=== PATIENT | male | born 1980 | race Caucasian/White ===

== ENCOUNTER 2017-03-26 13:52 | Emergency (ER) | payer SELFPAY ==
[2017-03-26 16:06] LABS: #Lymphocytes 0.9 thou/uL (1.20-3.40); #Monocytes 0.3 thou/uL (0.11-0.59); #Neutrophils 6.1 thou/uL (1.40-6.50); %Eosinophils 0.1 % (0.0-10.0); %Lymphocytes 12.8 % (21.0-51.0); %Monocytes 3.8 % (0.0-10.0); Hematocrit 43.9 % (42.0-52.0); Mean Platelet Volume 7.6 fL (7.4-10.4); Red Blood Cell (RBC) Count 4.71 mill/uL (4.70-6.10); White Blood Cell (WBC) Count 7.4 thou/uL (4.8-10.8)
[2017-03-26] MEDS ORDERED: Benzonatate 100 MG CAP ONE (16:23)
[2017-03-26 16:29] LABS: ALT (SGPT) 23 U/L (8-55); AST (SGOT) 20 U/L (5-34); Alkaline Phosphatase 56 U/L (40-150); Anion Gap 14 mmol/L (10-20); BUN (Urea Nitrogen) 15 mg/dL (8.9-20.6); Bilirubin, Total 0.3 mg/dL (0.2-1.2); CK (CPK) 65 U/L (30-200); Calc. Creatinine Clearance 0 mL/min (70-130); Calcium 9.7 mg/dL (7.8-10.44); Carbon Dioxide 26 mmol/L (22-29); Chloride 102 mmol/L (98-107); Estimated GFR-MDRD 86; Globulin 3.6 g/dL (2.4-3.5); Protein, Total 7.8 g/dL (6.0-8.3)
--- NOTE | 2017-03-26 16:34 | RAD ---
TWO VIEWS CHEST 03/26/17 HISTORY: Cough. PA and lateral views of the chest is obtained. The lungs are well aerated. No evidence of active intr athoracic disease seen. No evidence of effusions, pneumonia or pneumothorax seen. IMPRESSION: Normal two views chest. POS: [facility]
== END 2017-03-26 17:46 | disposition home or self-care (01) ==
LOC: ERS 13:52
DX: J11.1 Influenza due to unidentified influenza virus with other respiratory manifestations (principal); F17.210 Nicotine dependence, cigarettes, uncomplicated
CPT/HCPCS: 71020; 80053; 82550; 85025

== ENCOUNTER 2017-04-27 14:52 | Inpatient (IN) | payer SELFPAY ==
[2017-04-27 15:27] LABS: #Basophils 0.1 thou/uL (0.0-0.2); #Eosinphils 0.2 thou/uL (0.0-0.7); #Lymphocytes 1.8 thou/uL (1.20-3.40); #Monocytes 0.7 thou/uL (0.11-0.59); #Neutrophils 7.1 thou/uL (1.40-6.50); %Basophils 0.5 % (0.0-1.0); %Eosinophils 1.6 % (0.0-10.0); %Lymphocytes 17.9 % (21.0-51.0); %Monocytes 7.2 % (0.0-10.0); %Neutrophils 72.7 % (42.0-75.0); Hemoglobin 15.5 g/dL (14.0-18.0); Mean Corpuscular HGB CONC 33.4 g/dL (32.0-36.0); Mean Corpuscular Hemoglobin 30.6 pg (27.0-31.0); Mean Corpuscular Volume 91.5 fl (80.0-94.0); Mean Platelet Volume 7.2 fL (7.4-10.4); Platelet Count 250 thou/uL (130-400); RBC Distribution Width 12.3 % (11.5-14.5); Red Blood Cell (RBC) Count 5.08 mill/uL (4.70-6.10); White Blood Cell (WBC) Count 9.8 thou/uL (4.8-10.8)
[2017-04-27 15:47] LABS: ALT (SGPT) 13 U/L (8-55); AST (SGOT) 18 U/L (5-34); Albumin 4.6 g/dL (3.5-5.0); Alkaline Phosphatase 56 U/L (40-150); Anion Gap 18 mmol/L (10-20); BUN (Urea Nitrogen) 9 mg/dL (8.9-20.6); Bilirubin, Total 0.7 mg/dL (0.2-1.2); Calc. Creatinine Clearance 0 mL/min (70-130); Calcium 10.2 mg/dL (7.8-10.44); Carbon Dioxide 23 mmol/L (22-29); Chloride 103 mmol/L (98-107); Estimated GFR-MDRD 79; Globulin 3.5 g/dL (2.4-3.5); Glucose 79 mg/dL (70-105); Potassium 3.7 mmol/L (3.5-5.1); Protein, Total 8.1 g/dL (6.0-8.3); Sodium 140 mmol/L (136-145)
[2017-04-27] MEDS ORDERED: Iopamidol 370 76% 50 ML VIAL FS ONE (17:34)
[2017-04-27] MEDS ORDERED: ISOVUE-370 76%-LOCM 1 ML ONE (17:34)
[2017-04-27] MEDS ORDERED: Ondansetron HCl/PF 4 MG/2 ML Vial ONE ×2 (18:13→20:43)
[2017-04-27] MEDS ORDERED: Morphine 4 MG/ML VIAL ONE (20:53)
--- NOTE | 2017-04-27 22:31 | CT ---
CT ABDOMEN AND PELVIS WITH ORAL AND IV CONTRAST 04/27/17 HISTORY: Nausea, vomiting, diarrhea and abdominal pain. FINDINGS: The lung bases are clear. No calcified gallstones are seen. The spleen, pancreas, adrenal gland and k idneys are normal. There is an heterogeneously enhancing 5.5 cm right liver lobe mass. No free air, free fluid or lymphadenopathy seen in the abdomen or pelvis. An abnormally dilated fluid filled appendix is not visualized. No pericolonic inflammatory changes are seen. There is scattered colonic diverticulosis. IMPRESSION: 1. Mild colonic diverticulosis. 2. Right liver lobe mass. This should be evaluated with a technetium 99m labeled RBC scan. If th e scan is positive for hemangioma, workup should be stopped. If not, an ultrasound should be performe d with subsequent biopsy if needed. Code T POS: [facility]
[2017-04-27] MEDS ORDERED: Fentanyl 100 MCG/2 ML VIAL ONE (22:48)
[2017-04-27 23:17] LABS: Bilirubin Small (Negative); Blood, Urine Negative (Negative); Clarity CLEAR (Clear); Glucose, Urine (Dipstick) Negative (Negative); Leukocyte Trace (Negative); Nitrite Negative (Negative); Protein, Urine (Dipstick) Negative (Neg-Trace); Specific Gravity, Urine 1.034 (1.002-1.036); Urobilinogen 0.2 mg/dL (0.2-1.0); pH, Urine 5.5 (5.0-9.0)
[2017-04-27 23:19] LABS: Bacteria/HPF None Seen HPF (None Seen); Hyaline Casts/LPF 0-3 HYALINE CAST LPF (0-3 Hyaline); RBC/HPF 0-3 HPF (0-3); Squamous Epithelial None Seen HPF (0-3); WBC/HPF 0-3 HPF (0-3)
[2017-04-28] MEDS ORDERED: Ondansetron ODT 4 MG TAB PO PRN (00:33)
[2017-04-28] MEDS ORDERED: Acetaminophen 325 MG TAB PO PRN (00:33)
[2017-04-28] MEDS ORDERED: Ondansetron HCl/PF 4 MG/2 ML Vial IVP PRN (00:33)
[2017-04-28] MEDS: Sodium Chloride 0.9% 1,000 ML IV SCH ×3 (01:08→17:57)
[2017-04-28] MEDS ORDERED: HYDROcodone/Acetaminophen 7.5/325 mg Tablet PO PRN (01:12)
[2017-04-28 01:51] LABS: Amphetamine Not Detected (NotDetected); Barbiturates Screen Not Detected (NotDetected); Benzodiazepine Screen Not Detected (NotDetected); Cocaine Metabolite Screen Not Detected (NotDetected); Medtox Control Line Valid? VALID (VALID); Medtox Reader # READER 4; Methadone Not Detected (NotDetected); Methamphetamine Not Detected (NotDetected); Opiate Screen Detected (NotDetected); Oxycodone Screen Not Detected (NotDetected); Phencyclidine (PCP) Not Detected (NotDetected); THC/Cannabinoid Screen Detected (NotDetected); Tricyclic Screen Not Detected (NotDetected)
[2017-04-28] MEDS: Morphine 4 MG/ML VIAL SLOW IVP PRN ×5 (02:01→19:25)
[2017-04-28 02:07] VITALS: BMI 24.0
[2017-04-28] MEDS: Nicotine 14 MG PATCH TD SCH (05:16)
[2017-04-28 07:22] LABS: #Eosinphils 0.3 thou/uL (0.0-0.7); #Lymphocytes 1.6 thou/uL (1.20-3.40); #Monocytes 0.8 thou/uL (0.11-0.59); #Neutrophils 6.8 thou/uL (1.40-6.50); %Basophils 0.5 % (0.0-1.0); %Eosinophils 2.9 % (0.0-10.0); %Monocytes 7.9 % (0.0-10.0); %Neutrophils 71.7 % (42.0-75.0); Hemoglobin 13.4 g/dL (14.0-18.0); Mean Corpuscular HGB CONC 32.8 g/dL (32.0-36.0); Mean Corpuscular Hemoglobin 30.2 pg (27.0-31.0); Mean Platelet Volume 7.2 fL (7.4-10.4); Platelet Count 202 thou/uL (130-400); RBC Distribution Width 12.2 % (11.5-14.5); Red Blood Cell (RBC) Count 4.45 mill/uL (4.70-6.10); White Blood Cell (WBC) Count 9.5 thou/uL (4.8-10.8)
[2017-04-28] MEDS ORDERED: FLU VACC QS2017-18 36 mo. & older 0.5 ML SYRINGE IM ONE (09:00)
[2017-04-28] MEDS: AMOXicillin 250 MG CAP PO SCH ×2 (09:00→21:53)
[2017-04-28] MEDS: Pantoprazole 40 MG VIAL IVP SCH (09:01)
--- NOTE | 2017-04-28 09:19 | HP-2 ---
CODE STATUS: FULL. PRIMARY CARE PHYSICIAN: Lesley pichardo. ATTENDING: Dr. Michelle Veronica RESIDENT: Dr. Tati Alonzo HISTORIAN: Patient. CHIEF COMPLAINT: Nausea, vomiting, diarrhea. HISTORY OF PRESENT ILLNESS: The patient is a 36-year-old male with past medical history of Crohn's d isease who presented for a 2-day history of nausea, vomiting, diarrhea, and abdominal pain. He repor ts 7-8 episodes of diarrhea in the past 24 hours, does report fever at home as well as decreased appe tite and weight loss. In regards to his Crohn's disease the last flare was in October. The patient rep orts this episode, especially the diarrhea, feels different and regular Crohn's flares. His Crohn's treatment consists of no medication at this time, but was on Remicade in the past. It stopped workin g 2 years ago, has not been on it since that time. He was approved for Humira, but never took the me dication because he did not have follow up with a doctor due to his uninsured status and was anxious about side effects. He has been to the ED the last 3 months and was given steroids. He has tapered himself off and has been off of them for 1 month. The patient also reports chronic anal fistula that has not worsened and is actually improved from baseline. The patient also reports possible blood in stool. In the ER he got Zofran, fentanyl, morphine, and 2 liters of normal saline. PAST MEDICAL HISTORY: Crohn's. PAST SURGICAL HISTORY: Tonsillectomy and abscess I&D. ALLERGIES: No known drug allergies. MEDICATIONS: None. FAMILY HISTORY: Dad with lung cancer. SOCIAL HISTORY: The patient smokes 1-5 cigarettes per day, drinks socially and uses marijuana, last used this morning. REVIEW OF SYSTEMS: Twelve point review of systems performed including general, eyes, ENT, respirator y, CV, GI, , skin, MS, neuro and psych and positive findings discussed above in HPI. All other sys tems negative. PHYSICAL EXAMINATION: VITAL SIGNS: Blood pressure 136/81, pulse 80, respiratory rate 16, T-max 99, pulse ox 96% on room ai r, current weight 70.31 kilograms. GENERAL: The patient is alert and oriented x4, in no acute distress. Does have facial flushing. EYES: PERRLA, EOMI. ENT: Left tympanic membrane bulging with tereza pus in the ear drum indicating acute otitis media. N tanvi mucosa within normal limits. Oropharynx within normal limits. NECK: Supple, without lymphadenopathy. CARDIOVASCULAR: Regular rate and rhythm, no murmurs. RESPIRATORY: Normal effort, no retractions. SKIN: Warm and dry. ABDOMEN: Soft with tenderness in the left lower quadrant. Bowel sounds normal. EXTREMITIES: No clubbing, cyanosis or edema. MUSCULOSKELETAL: Structure within normal limits, tone within normal limits. NEUROLOGIC: No focal deficits. GCS 15. PSYCHIATRIC: Appropriate. LABORATORY DATA: CBC; hemoglobin 15.5, hematocrit 46.5, platelets 250. Chemistries: Sodium 140, potassium 3.6, chloride 103, bicarbonate 23, BUN 9, creatinine 1.05, glucos e 79, calcium 10.2, total protein 8.1, albumin 4.6, AST 18, ALT 13, alkaline phosphatase 56, total bi lirubin 0.7. CRP 1.7. IMAGING: CT abdomen and pelvis shows mild diverticulosis with a right 5 cm lower lobe liver mass joselito picious for possible hemangioma. ASSESSMENT AND PLAN: 1. Crohn's flare versus viral gastroenteritis. Dr. Verdugo consulted in the ED recommended stool stud ies, IV fluids and pain control. No steroids at this time per GI recommendations. 2. Liver mass. Possible hemangioma. Appreciate GI recommendations. 3. Left acute otitis media. We will treat with amoxicillin, possibly need myringotomy. The patient states ear pain since summer of 2016 and has not had any treatment. DISPOSITION AND LENGTH OF HOSPITAL STAY: 1-2 days. Symptomatic medications will be provided. History and physical exam well as management discussed with Dr. Michelle Veronica.
[2017-04-28] MEDS: Promethazine 25 MG TAB PO PRN ×2 (10:12→19:29)
--- NOTE | 2017-04-28 10:55 | PDOC.FM ---
- Subjective Subjective: Patient found in bed with by bedside. He states he is having abdominal discomfort. He said in past phenegran has helped with this. He specifically denies blood in his stool, though has some with wiping, endorse nausea, emesis. He does admit to marijuana use and feeling relief from nausea with showers. - Objective MAR Reviewed: Yes Vital Signs & Weight: Vital Signs (12 hours) Temp Pulse Resp BP Pulse Ox 04/28/17 07:55 97.2 F L 81 20 129/67 96 04/28/17 03:53 98.0 F 75 16 116/64 93 L 04/28/17 00:45 98.2 F 76 20 127/64 97 Weight Weight 74.049 kg I&O: 04/27/17 04/28/17 04/29/17 06:59 06:59 06:59 Intake Total 590.0 2 Balance 590.0 2 Result Diagrams: 04/28/17 07:13 04/27/17 15:18 <Shiraz Noble - Last Filed: 04/28/17 14:21> - Objective Vital Signs & Weight: Vital Signs (12 hours) Temp Pulse Resp BP Pulse Ox 04/28/17 11:40 97.6 F 70 20 123/69 100 04/28/17 07:55 97.2 F L 81 20 129/67 96 04/28/17 07:45 97.2 F L 81 20 Weight Admit Weight 73.936 kg Weight 73.936 kg I&O: 04/27/17 04/28/17 04/29/17 06:59 06:59 06:59 Intake Total 590.0 62 Balance 590.0 62 Result Diagrams: 04/28/17 07:13 04/27/17 15:18 <Gutierrez Sena - Last Filed: 04/28/17 16:51> Phys Exam - Physical Examination Constitutional: NAD HEENT: moist MMs Neck: no nodes Respiratory: no wheezing, no rhonchi Cardiovascular: RRR, no significant murmur, no rub Gastrointestinal: soft, no distention Mild diffuse tenderness throughout abdomen Musculoskeletal: no edema Neurological: non-focal Lymphatic: no nodes Psychiatric: normal affect Skin: no rash <Shiraz Noble - Last Filed: 04/28/17 14:21> Dx/Plan (1) Crohn disease Code(s): K50.90 - CROHN'S DISEASE, UNSPECIFIED, WITHOUT COMPLICATIONS Status: Acute Plan: Patient with known crohn disease. However he is not on his medication currently due to insurance issues. GI has been consulted. They do not think this is a flare at this time and recommend against steroid. (2) Liver mass Code(s): R16.0 - HEPATOMEGALY, NOT ELSEWHERE CLASSIFIED Status: Acute Plan: Possible hemangioma found on ct, mass was 5 cm. Patient states that this is known issue and it was called a hemangioma in past. We will request records from [facility] where he got a scan in 2016 before going forward with tagged RBC scan. (3) Otitis media Code(s): H66.90 - OTITIS MEDIA, UNSPECIFIED, UNSPECIFIED EAR Status: Acute Plan: Will treat with amoxicillin. Appear that it has rupture. (4) Gastroenteritis Code(s): K52.9 - NONINFECTIVE GASTROENTERITIS AND COLITIS, UNSPECIFIED Status : Acute Plan: GI felt this more likely represent a gastroenteritis. Supportive care while culture returns. (5) Substance abuse Code(s): F19.10 - OTHER PSYCHOACTIVE SUBSTANCE ABUSE, UNCOMPLICATED Status: Acute Plan: UDS was positive for cannabis. Symptoms may be from cannabis hyperemesis. <Shiraz Noble - Last Filed: 04/28/17 14:21> Attending Addendum - Attending Addendum I personally evaluated the patient and discussed the management with Dr. Noble. I agree with and repeated the History, Examination, Assessment and Plan documented above with any addition or exceptions noted below. Doing ok this morning, c/o abdominal pain that has improved with opiates. He has had very fragmented care since moving back to [place] from [place], and says he has been to ED's in [facility] and [facility]. Relatively benign exam except some purulence and obscured TM in the left ear, without mastoid bogginess or tenderness. Rectal deferred but no obvious fistula per Dr. Noble. Await stool workup. Records requested from [facility] where he says they investigated the liver mass and told him it was a hemangioma. Will hold on steroids. Has not had bloody BM's. Await GI eval. <Gutierrez Sena - Last Filed: 04/28/17 16:51>
--- NOTE | 2017-04-28 19:27 | CT ---
CT ABDOMEN WITH AND WITHOUT IV CONTRAST 04/28/17 HISTORY: Abdominal pain, nausea and vomiting. Liver mass. FINDINGS: Comparison is made with exam of previous day. The lung bases are clear. The spleen, pancreas, adrenal glands and kidneys are normal. There is vicar ious excretion of contrast in the gallbladder, new since yesterday's exam. The 5.5 cm mass in the right lobe of the liver demonstrates peripheral nodular enhancement with incom plete centripetal filling. The previous day's exam demonstrates a larger area of filling compared to the current study. No free air or free fluid or lymphadenopathy seen in the abdomen. The small bowel loops are not abnor lazaro dilated. No acute osseous abnormalities are seen. IMPRESSION: Liver mass is consistent with hemangioma. POS: [facility]
--- NOTE | 2017-04-28 22:36 | CON ---
DATE OF CONSULTATION: 04/28/2017 REASON FOR CONSULTATION: Probable Crohn's flare. CONSULTING PHYSICIAN: Randa Solomon MD HISTORY OF PRESENT ILLNESS: The patient is a 36-year-old gentleman with a past medical history of Crohn's disease, who is presenting with complaints of nausea , vomiting, diarrhea, and abdominal pain. He states that he was in his usual state of health until a few weeks ago when he started to have increased intermittent bouts of abdominal pain. However, over the last 2 days, he had a sudden increase in nausea, vomiting with nonbloody emesis, abdominal pain, and diarrhea. His abdominal pain, he described it as located on his left side in the suprapubic region, constant, 8/10 in severity. No clear exacerbating factors, but better with having a bowel movement. He also endorsed significant increased rectal pain associated with the increased diarrhea. The diarrhea was also nonbloody in nature, but he does also have a history of a chronic anal fistula related to his Crohn's disease that underwent Seton placement in 2004. With the worsening of the above symptoms, it prompted him to seek medical attention with the patient admitted to [facility] for further evaluation. Upon review with the patient, he said he was initially diagnosed with Crohn's disease in 2002 when he underwent a colonoscopy with biopsies showing the presence of the disease. His presenting symptoms were suprapubic abdominal pain , diarrhea, as well as mild nausea and vomiting. At that particular time, he was ultimately placed on Remicade and 6-MP with resolution of his symptoms. However, after approximately one year of treatment with 6-MP, he discontinued the medication and was continued with Remicade as monotherapy. In 2004, he had recurrence of the rectal fistula, at which point he underwent Seton placement. He was also placed on Asacol in addition to the Remicade at that time. Over the next decade, he was intermittently on Remicade, but with good response with administration and maintain a modium of remission. However, over the last year he has been having diminishing returns with Remicade administration, with his prior GI physician recommending transfer to Humira given loss of efficacy. He has thus far only received one dose of Humira (not loading dose). He also endorses a history of severe mouth ulcers and worsening of his rectal pain as well as mucoid discharge from the anal fistula when his Crohn's disease is uncontrolled. REVIEW OF SYSTEMS: A 12-category review of systems was obtained with all responses negative except for the pertinent positives as listed in the HPI. PAST MEDICAL HISTORY: Crohn's disease diagnosed in 2002. PAST SURGICAL HISTORY: Tonsillectomy and abscess I and D, no prior surgeries related to Crohn's complications. FAMILY HISTORY: Lung cancer (father). SOCIAL HISTORY: Smokes approximately 1-5 cigarettes per day as well as intermittent use of marijuana. Drinks approximately 2 drinks per month. MEDICATIONS: None. ALLERGIES: No known drug allergies. PHYSICAL EXAMINATION: VITAL SIGNS: Temperature 97.6, pulse 70, blood pressure 123/69, respiratory rate 20, satting 100% on room air. GENERAL: Patient is lying in bed comfortably, in no acute distress. Alert and oriented x4. HEENT: No discernible oropharyngeal ulcerations. NECK: Supple. No JVD noted. CARDIOVASCULAR: Regular rate and rhythm with no discernible murmurs, gallops, or rubs. RESPIRATORY: Clear to auscultation bilaterally with no discernible wheezes or rales. ABDOMEN: Normoactive bowel sounds, soft, nondistended. Tenderness to palpation in the midepigastric, right upper quadrant, and right lower quadrant. EXTREMITIES: No cyanosis, clubbing, or edema. LABORATORY DATA: CBC with a white blood cell count of 9.5, hemoglobin 13.4, hematocrit 40.9, platelets 202. Chemistry with a sodium of 140, potassium 3.7, chloride 103, carbon dioxide 23, BUN 9, creatinine 1.09, glucose 79, AST 18, ALT 13, alkaline phosphatase 56, total bilirubin 0.7. IMAGING STUDIES: CT and pelvis obtained on 04/27/2017, showing no free air, free fluid, or lymphadenopathy within the pelvis or abdomen. No pericolonic inflammatory changes are seen. There is scattered diverticulosis; however, there was also noted a heterogeneous lesion enhancing 5.5 cm right liver lobe mass. ASSESSMENT AND PLAN: The patient is a 36-year-old male with past medical history of Crohn's disease presenting with a probable Crohn's flare. Probable Crohn's flare The patient is presenting with a 1-2 week history of worsening abdominal pain and diarrhea that has progressively gotten worse over the last 2 days to include increased nausea and vomiting. He does have a history of Crohn's disease that was diagnosed in 2002 with presenting symptoms very similar to his current symptoms on this admission. Currently, having 6-7 small volume liquid bowel movements per day that are nonbloody. He had been taking prednisone until approximately one month ago with good response to the medication; however , he completed the treatment duration with return of symptoms on this admission. At this point, given the presence of prior diagnosis of Crohn's disease and the presence of an anorectal fistula, it could be considered complicated disease and the patient will need to be on escalated therapy in the future to include anti-TNF and immunomodulator therapy. Stool studies have been negative thus far with only the stool culture pending, so will place the patient on 40 mg prednisone daily for probable Crohn's flare and we will follow up on the stool cultures as its report is released. Recommendations: 1. Follow up on stool culture for any infectious etiology as a possible cause of Crohn's flare. 2. We will place the patient on prednisone 40 mg daily for Crohn's flare. 3. Follow up in the GI clinic within 2 weeks of discharge for continuation of therapy and plans to place on the immunomodulator and/or TNF therapy. Liver mass The patient is presenting with a probable Crohn's flare with the incidental finding of a 5.5 cm liver mass within the right lobe of the liver. At this point in time, given the current study with a CT abdomen and pelvis, it is indeterminate, but more likely to be a hemangioma. However, further characterization of this liver mass is needed with a multiphasic CT or MRI needed to do so. Either study could potentially help differentiate between hemangioma versus possible liver malignancy. Recommendations: 1. Would obtain a CT three-phase for a further characterization of this liver lobe mass. 2. If determined to be a hemangioma, no further workup is necessary. We will continue to follow. Please call with any questions. MTDD
[2017-04-29] MEDS: MORPHINE 10 MG/ML SYRINGE SLOW IVP PRN ×3 (02:37→16:18)
[2017-04-29] MEDS: Sodium Chloride 0.9% 1,000 ML IV SCH ×4 (03:34→21:29)
[2017-04-29] MEDS: Nicotine 14 MG PATCH TD SCH (05:57)
--- NOTE | 2017-04-29 09:35 | PDOC.FM ---
- Subjective Subjective: Patient feels overall ok today, but is still having nausea and too numerous to count bowel movement. He denies having fever, chills, sob, chest pain. Has generalized abd discomfort. - Objective MAR Reviewed: Yes Vital Signs & Weight: Vital Signs (12 hours) Temp Pulse Resp BP BP Pulse Ox 04/29/17 07:49 98.8 F 133 H 20 128/70 99 04/29/17 03:40 98.0 F 70 16 126/63 95 04/28/17 23:22 98.0 F 80 16 113/56 L 95 Weight Admit Weight 73.936 kg Weight 73.936 kg I&O: 04/28/17 04/29/17 04/30/17 06:59 06:59 06:59 Intake Total 590.0 1812.7 Balance 590.0 1812.7 Result Diagrams: 04/28/17 07:13 04/27/17 15:18 <Shiraz Noble - Last Filed: 04/29/17 11:11> - Objective Vital Signs & Weight: Vital Signs (12 hours) Temp Pulse Resp BP BP BP Pulse Ox 04/29/17 08:22 98.8 F 133 H 20 128/70 99 04/29/17 07:49 98.8 F 133 H 20 128/70 99 04/29/17 03:40 98.0 F 70 16 126/63 95 Weight Admit Weight 73.936 kg Weight 73.936 kg I&O: 04/28/17 04/29/17 04/30/17 06:59 06:59 06:59 Intake Total 590.0 1812.7 Balance 590.0 1812.7 Result Diagrams: 04/28/17 07:13 04/27/17 15:18 <Gutierrez Sena - Last Filed: 04/29/17 11:37> Phys Exam - Physical Examination Constitutional: NAD HEENT: moist MMs Neck: no nodes, supple Respiratory: no wheezing, no rales, no rhonchi, clear to auscultation bilateral Cardiovascular: RRR, no significant murmur, no rub Gastrointestinal: soft, non-tender, no distention, positive bowel sounds Musculoskeletal: no edema Neurological: non-focal, moves all 4 limbs Lymphatic: no nodes Psychiatric: normal affect Deviation from normal: Rash between gluteal cleft. Pain with touch. Refused rectal exam <Shiraz Noble - Last Filed: 04/29/17 11:11> Dx/Plan (1) Crohn disease Code(s): K50.90 - CROHN'S DISEASE, UNSPECIFIED, WITHOUT COMPLICATIONS Status: Acute Plan: Patient with known crohn disease. However he is not on his medication currently due to insurance issues. GI has been consulted. They recommend starting on prednisone 40. Will monitor for resolution (2) Liver mass Code(s): R16.0 - HEPATOMEGALY, NOT ELSEWHERE CLASSIFIED Status: Acute Plan: Possible hemangioma found on ct, mass was 5 cm. Patient states that this is known issue and it was called a hemangioma in past. CT was done yesterday that suggested hemangioma. Will follow with GI recs (3) Otitis media Code(s): H66.90 - OTITIS MEDIA, UNSPECIFIED, UNSPECIFIED EAR Status: Acute Plan: Will treat with amoxicillin. Appear that it has rupture. Redosed patient's amoxicillin today. (4) Gastroenteritis Code(s): K52.9 - NONINFECTIVE GASTROENTERITIS AND COLITIS, UNSPECIFIED Status : Acute Plan: GI fell this is likely crohn flare, treating with prednisone. Culture is negative so far for campy, c diff, shigella, and parasite. (5) Substance abuse Code(s): F19.10 - OTHER PSYCHOACTIVE SUBSTANCE ABUSE, UNCOMPLICATED Status: Acute Plan: UDS was positive for cannabis. Symptoms may be from cannabis hyperemesis. 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 <AideShiraz Dl - Last Filed: 04/29/17 11:11> Attending Addendum - Attending Addendum I personally evaluated the patient and discussed the management with Dr. Noble. I agree with and repeated the History, Examination, Assessment and Plan documented above with any addition or exceptions noted below. Stable pain this morning. No cp/sob/n/v. He was tachycardic earlier. Will bolus and observe. Low suspicion for PE. Adjusted amoxicillin. <Gutierrez Sena - Last Filed: 04/29/17 11:37>
[2017-04-29] MEDS ORDERED: Sodium Chloride 0.9% 1,000 ML IV SCH (10:00)
[2017-04-29] MEDS: predniSONE 20 MG TAB PO SCH (10:47)
[2017-04-29] MEDS: AMOXicillin 250 MG CAP PO SCH ×3 (10:47→20:31)
[2017-04-29] MEDS: Pantoprazole 40 MG VIAL IVP SCH (10:47)
--- NOTE | 2017-04-29 17:25 | PRG ---
DATE OF SERVICE: 04/29/2017 REASON FOR CONSULTATION: Probable Crohn's flare. SUBJECTIVE: The patient is somewhat improved this afternoon with decrease in his nausea and vomiting since admission; however, he continues to have small volume diarrhea with approximately 4-5 watery bowel movements a day and associated tenesmus. He also continues to have minimal abdominal pain, but also improved from previous. Currently, he denies any fevers, chills, shortness of breath, odynophagia, dysphagia, hematochezia, or melena. OBJECTIVE: VITAL SIGNS: Temperature 98.9, pulse 115, blood pressure 134/78, respiratory rate 16, and satting 100% on room air. GENERAL: The patient is lying comfortably in bed in no acute distress. He is alert and oriented x4. CARDIOVASCULAR: Regular rate and rhythm with tachycardic rate, but no discernible murmurs, gallops, or rubs. RESPIRATORY: Clear to auscultation bilaterally with no discernible wheezes or rales. ABDOMEN: Normoactive bowel sounds, soft, and nondistended. Tenderness to palpation in the midepigastric and right upper quadrant. EXTREMITIES: No cyanosis, clubbing, or edema. LABORATORY DATA: No current studies available for review today. IMAGING STUDIES: No current GI studies available for review. ASSESSMENT AND PLAN: The patient is a 36-year-old male with past medical history of Crohn's disease, presenting with probable Crohn's flare. Crohn's flare. The patient initially presented with a 1-2 week history of worsening abdominal pain and diarrhea that had progressively gotten worse over the 2 days prior to admission and associated with increased nausea and vomiting. On admission, he was having approximately 6-7 small volume liquid bowel movements per day that were nonbloody in consistency. He had been taking prednisone for his Crohn's disease until approximately one month ago and was doing well on this regimen; however, he completed the treatment duration with return of symptoms within the last few weeks. At this point, given negative infectious workup and presenting symptoms very similar to his prior presenting symptoms with Crohn's flare is the current clinical constellation of symptoms are most consistent with a Crohn's flare. Given the presence of recurrent or chronic anorectal fistula this could be considered complicated disease. The patient will need to be placed on either anti-TNF and/or immunomodulator therapy in the future. Currently tolerating prednisone 40 mg daily with no adverse events and good response to oral corticosteroids in the past. RECOMMENDATIONS: 1. We would continue the patient on prednisone 40 mg daily until seen for followup in GI clinic as an outpatient. 2. We would recommend followup in the GI clinic in 2 weeks of discharge for continuation of therapy and plans to ultimately place the patient back on Humira with medication assistance. Liver Mass Patient presenting with abnormal imaging on admission with a 5cm enhancing lesion on CT. However, further evaluation with CT 3 phase showed enhancement characteristics more consistent with a hemangioma. Given the benign nature of these lesions, no further intervention is necessary. We will sign off. Please call with any questions. CAROLED
[2017-04-29] MEDS: Morphine 4 MG/ML Carpuject SLOW IVP PRN (20:02)
[2017-04-29] MEDS: Promethazine 25 MG TAB PO PRN (20:03)
[2017-04-30] MEDS: Morphine 4 MG/ML Carpuject SLOW IVP PRN ×3 (00:38→09:10)
[2017-04-30] MEDS: Nicotine 14 MG PATCH TD SCH (05:39)
[2017-04-30] MEDS: Sodium Chloride 0.9% 1,000 ML IV SCH (05:53)
[2017-04-30] MEDS: AMOXicillin 250 MG CAP PO SCH ×3 (09:10→20:11)
[2017-04-30] MEDS: predniSONE 20 MG TAB PO SCH (09:12)
--- NOTE | 2017-04-30 09:15 | PDOC.FM ---
- Subjective Subjective: Patient did not have acute event overnight. He state he still has loose stool and is sore from going to the restroom. - Objective MAR Reviewed: Yes Vital Signs & Weight: Vital Signs (12 hours) Temp Pulse Resp BP Pulse Ox 04/30/17 07:45 98.2 F 87 14 121/73 100 Weight Admit Weight 73.936 kg Weight 73.936 kg I&O: 04/29/17 04/30/17 05/01/17 06:59 06:59 06:59 Intake Total 1812.7 7391.0 Balance 1812.7 7391.0 Result Diagrams: 04/28/17 07:13 04/27/17 15:18 <Shiraz Noble - Last Filed: 04/30/17 09:13> - Objective Vital Signs & Weight: Vital Signs (12 hours) Temp Pulse Resp BP Pulse Ox 04/30/17 11:35 98.6 F 78 14 107/58 L 98 04/30/17 07:45 98.2 F 87 14 121/73 100 Weight Admit Weight 73.936 kg Weight 73.936 kg I&O: 04/29/17 04/30/17 05/01/17 06:59 06:59 06:59 Intake Total 1812.7 7391.0 Balance 1812.7 7391.0 Result Diagrams: 04/28/17 07:13 04/30/17 09:23 <Gutierrez Sena - Last Filed: 04/30/17 12:06> Phys Exam - Physical Examination Constitutional: NAD HEENT: moist MMs Neck: no nodes, supple Respiratory: no wheezing, no rales, no rhonchi, clear to auscultation bilateral Cardiovascular: RRR, no rub Gastrointestinal: soft, no distention, positive bowel sounds Musculoskeletal: no edema Neurological: moves all 4 limbs Lymphatic: no nodes Psychiatric: normal affect Skin: no rash <Shiraz Noble - Last Filed: 04/30/17 09:13> Dx/Plan (1) Crohn disease Code(s): K50.90 - CROHN'S DISEASE, UNSPECIFIED, WITHOUT COMPLICATIONS Status: Acute Plan: Patient with known crohn disease. However he is not on his medication currently due to insurance issues. GI has been consulted. He is now on dose 2 of prednisone 40. Will monitor for resolution. He say that usually it takes 4-5 days (2) Liver mass Code(s): R16.0 - HEPATOMEGALY, NOT ELSEWHERE CLASSIFIED Status: Acute Plan: CT found likely hemangioma. GI agrees and has signed off. (3) Otitis media Code(s): H66.90 - OTITIS MEDIA, UNSPECIFIED, UNSPECIFIED EAR Status: Acute Plan: Will treat with amoxicillin. Appear that it has rupture. Day 3 of abx (4) Gastroenteritis Code(s): K52.9 - NONINFECTIVE GASTROENTERITIS AND COLITIS, UNSPECIFIED Status : Acute Plan: GI fell this is likely crohn flare, treating with prednisone. Culture is negative so far for campy, c diff, shigella, and parasite. Continue with treatment. Plan is for patient tolerate PO and may go home in 1-2 days (5) Substance abuse Code(s): F19.10 - OTHER PSYCHOACTIVE SUBSTANCE ABUSE, UNCOMPLICATED Status: Acute Plan: UDS was positive for cannabis. Symptoms may be from cannabis hyperemesis. 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 <Shiraz Noble - Last Filed: 04/30/17 09:13> Attending Addendum - Attending Addendum I personally evaluated the patient and discussed the management with Dr. Nobel. I agree with and repeated the History, Examination, Assessment and Plan documented above with any addition or exceptions noted below. Continued abdominal pain. No n/v. Continued diarrhea. No cp/sob. No f/c. Continue prednisone. D/c IVF. IV + PO pain control, attempt to transition to solely PO today or tomorrow. <Gutierrez Sena - Last Filed: 04/30/17 12:06>
[2017-04-30] MEDS: Pantoprazole 40 MG VIAL IVP SCH (09:16)
[2017-04-30 09:54] LABS: ALT (SGPT) 8 U/L (8-55); AST (SGOT) 14 U/L (5-34); Albumin 3.9 g/dL (3.5-5.0); Alkaline Phosphatase 44 U/L (40-150); Anion Gap 16 mmol/L (10-20); BUN (Urea Nitrogen) 5 mg/dL (8.9-20.6); Bilirubin, Total 0.5 mg/dL (0.2-1.2); Calc. Creatinine Clearance 109 mL/min (70-130); Calcium 8.6 mg/dL (7.8-10.44); Carbon Dioxide 19 mmol/L (22-29); Chloride 106 mmol/L (98-107); Estimated GFR-MDRD 88; Glucose 86 mg/dL (70-105); Potassium 3.7 mmol/L (3.5-5.1); Protein, Total 6.9 g/dL (6.0-8.3); Sodium 137 mmol/L (136-145)
[2017-04-30] MEDS: traMADol HCl 50 MG TAB PO PRN ×2 (12:53→20:12)
[2017-04-30] MEDS ORDERED: Loperamide HCl 2 MG CAP PO PRN (16:31)
[2017-04-30] MEDS: Promethazine 25 MG TAB PO PRN (17:29)
[2017-05-01] MEDS: Promethazine 25 MG TAB PO PRN ×3 (00:07→17:33)
[2017-05-01] MEDS: Nicotine 14 MG PATCH TD SCH (06:25)
[2017-05-01] MEDS: traMADol HCl 50 MG TAB PO PRN ×3 (06:27→23:51)
[2017-05-01 06:40] LABS: ALT (SGPT) 9 U/L (8-55); AST (SGOT) 14 U/L (5-34); Albumin 3.7 g/dL (3.5-5.0); Alkaline Phosphatase 46 U/L (40-150); Anion Gap 14 mmol/L (10-20); BUN (Urea Nitrogen) 7 mg/dL (8.9-20.6); Bilirubin, Total 0.5 mg/dL (0.2-1.2); Calc. Creatinine Clearance 122 mL/min (70-130); Calcium 9.6 mg/dL (7.8-10.44); Carbon Dioxide 27 mmol/L (22-29); Chloride 101 mmol/L (98-107); Estimated GFR-MDRD Greater than 90; Globulin 2.9 g/dL (2.4-3.5); Glucose 105 mg/dL (70-105); Potassium 3.8 mmol/L (3.5-5.1); Protein, Total 6.6 g/dL (6.0-8.3); Sodium 138 mmol/L (136-145)
[2017-05-01] MEDS: HYDROcodone/Acetaminophen 7.5/325 mg Tablet PO PRN ×2 (08:56→20:13)
[2017-05-01] MEDS: predniSONE 20 MG TAB PO SCH (08:58)
[2017-05-01] MEDS: Pantoprazole 40 MG VIAL IVP SCH (08:59)
[2017-05-01] MEDS: Enoxaparin Sodium 40 MG/0.4 ML SYRINGE SC SCH (09:03)
--- NOTE | 2017-05-01 09:05 | PDOC.FM ---
- Subjective Subjective: Patient found sleeping in bed. He says he didn't have a BM yesterday after receiving imodium. He still endorses abd discomfort with general loss of appetite. He says his ear is betterbut he may be hearing a ringing in it. - Objective MAR Reviewed: Yes Vital Signs & Weight: Vital Signs (12 hours) Temp Pulse Resp BP Pulse Ox 05/01/17 07:45 97.9 F 61 14 114/69 97 Weight Admit Weight 73.936 kg Weight 73.936 kg I&O: 04/30/17 05/01/17 05/02/17 06:59 06:59 06:59 Intake Total 7391.0 960 Balance 7391.0 960 Result Diagrams: 04/28/17 07:13 05/01/17 05:57 <Shiraz Noble - Last Filed: 05/01/17 09:03> - Objective Vital Signs & Weight: Vital Signs (12 hours) Temp Pulse Resp BP Pulse Ox 05/01/17 19:52 98.2 F 67 16 129/68 97 Weight Admit Weight 73.936 kg Weight 73.936 kg I&O: 04/30/17 05/01/17 05/02/17 06:59 06:59 06:59 Intake Total 7391.0 960 Balance 7391.0 960 Result Diagrams: 04/28/17 07:13 05/01/17 05:57 <Gutierrez Sena - Last Filed: 05/01/17 20:45> Phys Exam - Physical Examination Constitutional: NAD HEENT: moist MMs Neck: no nodes, supple Respiratory: no wheezing, no rales, no rhonchi, clear to auscultation bilateral Cardiovascular: RRR, no rub Gastrointestinal: soft, no distention, positive bowel sounds Mildly tender to palpation Musculoskeletal: no edema Neurological: non-focal, moves all 4 limbs Lymphatic: no nodes Psychiatric: normal affect Skin: no rash <Shiraz Noble - Last Filed: 05/01/17 09:03> Dx/Plan (1) Crohn disease Code(s): K50.90 - CROHN'S DISEASE, UNSPECIFIED, WITHOUT COMPLICATIONS Status: Acute Plan: Patient on 3rd dose of prednisone. Also has been on imodium which he state has helped his symptom. He still suffers from abd discomfort, low appetite but is still eating. (2) Otitis media Code(s): H66.90 - OTITIS MEDIA, UNSPECIFIED, UNSPECIFIED EAR Status: Acute Plan: Will treat with amoxicillin. Appear that it has rupture. Dose 4 of abx today (3) Gastroenteritis Code(s): K52.9 - NONINFECTIVE GASTROENTERITIS AND COLITIS, UNSPECIFIED Status : Acute Plan: GI fell this is likely crohn flare, treating with prednisone. Culture is negative so far for campy, c diff, shigella, and parasite. Continue with treatment. Plan is for patient tolerate PO and may go home in 1-2 days (4) Substance abuse Code(s): F19.10 - OTHER PSYCHOACTIVE SUBSTANCE ABUSE, UNCOMPLICATED Status: Acute Plan: UDS was positive for cannabis. Symptoms may be from cannabis hyperemesis. 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 (5) Liver mass Code(s): R16.0 - HEPATOMEGALY, NOT ELSEWHERE CLASSIFIED Status: Acute Plan: CT found likely hemangioma. GI agrees and has signed off. <Shiraz Noble - Last Filed: 05/01/17 09:03> Attending Addendum - Attending Addendum I personally evaluated the patient and discussed the management with Dr. Noble. I agree with and repeated the History, Examination, Assessment and Plan documented above with any addition or exceptions noted below. Doing better this morning. Pain still crampy, diffuse, worse with movement, but improved from yesterday. No n/v. No f/c. No cp/sob. Continue steroids, hold IVF, replete lytes PRN. Titrate down pain medications. Continue amoxicillin. Hopefully discharge tomorrow or the next day. <Gutierrez Sena - Last Filed: 05/01/17 20:45>
[2017-05-01] MEDS: AMOXicillin 250 MG CAP PO SCH ×3 (13:31→20:13)
[2017-05-02] MEDS: Nicotine 14 MG PATCH TD SCH (06:30)
--- NOTE | 2017-05-02 07:26 | PDOC.FM ---
- Subjective Subjective: Patient reports abdominal pain has not improved much, is still 6/10. Has not had BM since . Is having some nausea, but no vomiting. Has decreased appetite. Reports decreased hearing in L ear. - Objective MAR Reviewed: Yes Vital Signs & Weight: Vital Signs (12 hours) Temp Pulse Resp BP Pulse Ox 05/01/17 20:00 98.2 F 67 16 97 05/01/17 19:52 98.2 F 67 16 129/68 97 Weight Admit Weight 73.936 kg Weight 73.936 kg I&O: 05/01/17 05/02/17 05/03/17 06:59 06:59 06:59 Intake Total 960 800 Balance 960 800 Result Diagrams: 04/28/17 07:13 05/01/17 05:57 <Jeane Caballero - Last Filed: 05/02/17 07:24> - Objective Vital Signs & Weight: Vital Signs (12 hours) Temp Pulse Resp BP Pulse Ox 05/02/17 08:03 97.7 F 68 12 129/85 99 05/02/17 08:00 97.7 F 68 12 97 Weight Admit Weight 73.936 kg Weight 73.936 kg I&O: 05/01/17 05/02/17 05/03/17 06:59 06:59 06:59 Intake Total 960 800 Balance 960 800 Result Diagrams: 04/28/17 07:13 05/01/17 05:57 <Gutierrez Sena - Last Filed: 05/02/17 13:05> Phys Exam - Physical Examination Constitutional: NAD HEENT: moist MMs Respiratory: no wheezing, no rales, no rhonchi, clear to auscultation bilateral Cardiovascular: RRR, no significant murmur, no rub Gastrointestinal: soft, no distention, positive bowel sounds tender to palpation diffusely, worse in LLQ and LUQ, voluntary guarding Musculoskeletal: no edema, pulses present Neurological: non-focal, moves all 4 limbs Psychiatric: normal affect, A&O x 3 <Jeane Caballero - Last Filed: 05/02/17 07:24> Dx/Plan (1) Crohn disease Code(s): K50.90 - CROHN'S DISEASE, UNSPECIFIED, WITHOUT COMPLICATIONS Status: Acute QualifierTitle: Gastrointestinal tract location: unspecified location Digestive disease complication type: unspecified complication Qualified Code(s ): K50.919 - Crohn's disease, unspecified, with unspecified complications Plan: Acute Crohn's flare -Continue prednisone -[place] and tramadol for pain, will wean off pain meds -Imodium prn -f/u with GI outpatient (2) Otitis media Code(s): H66.90 - OTITIS MEDIA, UNSPECIFIED, UNSPECIFIED EAR Status: Acute QualifierTitle: Otitis media type: unspecified Laterality: left Qualified Code(s): H66.92 - Otitis media, unspecified, left ear Plan: L acute otitis media -Continue amoxicillin (3) Substance abuse Code(s): F19.10 - OTHER PSYCHOACTIVE SUBSTANCE ABUSE, UNCOMPLICATED Status: Acute Plan: UDS positive for cannabis, delinquency counselor and cessation (4) Liver mass Code(s): R16.0 - HEPATOMEGALY, NOT ELSEWHERE CLASSIFIED Status: Acute Plan: Hemangioma likely on CT. GI agreed and signed off. <Jeane Caballero - Last Filed: 05/02/17 07:24> Attending Addendum - Attending Addendum I personally evaluated the patient and discussed the management with Dr. Caballero. I agree with and repeated the History, Examination, Assessment and Plan documented above with any addition or exceptions noted below. Stable pain this morning. Mildly TTP. No guarding or rebound. Continue prednisone, pain medication. <Gutierrez Sena - Last Filed: 05/02/17 13:05>
[2017-05-02] MEDS: traMADol HCl 50 MG TAB PO PRN ×2 (07:47→19:37)
[2017-05-02] MEDS: Promethazine 25 MG TAB PO PRN ×2 (07:48→23:31)
[2017-05-02] MEDS: predniSONE 20 MG TAB PO SCH (07:55)
[2017-05-02] MEDS: AMOXicillin 250 MG CAP PO SCH ×3 (09:11→19:36)
[2017-05-02] MEDS: Enoxaparin Sodium 40 MG/0.4 ML SYRINGE SC SCH (09:11)
[2017-05-02] MEDS: HYDROcodone/Acetaminophen 7.5/325 mg Tablet PO PRN (13:14)
[2017-05-02] MEDS: Pantoprazole 40 MG VIAL IVP SCH (17:14)
[2017-05-03] MEDS: traMADol HCl 50 MG TAB PO PRN ×2 (02:27→20:28)
--- NOTE | 2017-05-03 07:31 | PDOC.FM ---
- Subjective Subjective: Patient reports that he is still having significant abdominal pain and nausea. He has still not had a BM and his appetite is still very low. He reports that he urinated twice yesterday and did not drink much fluids. He has not vomited. - Objective MAR Reviewed: Yes Vital Signs & Weight: Vital Signs (12 hours) Temp Pulse Resp Pulse Ox 05/02/17 20:00 98.6 F 67 16 98 Weight Admit Weight 73.936 kg Weight 73.936 kg I&O: 05/02/17 05/03/17 05/04/17 06:59 06:59 06:59 Intake Total 800 Balance 800 Result Diagrams: 04/28/17 07:13 05/01/17 05:57 <Jeane Caballero - Last Filed: 05/03/17 07:29> - Objective Vital Signs & Weight: Vital Signs (12 hours) Temp Pulse Resp BP Pulse Ox 05/03/17 07:15 96.6 F L 58 L 14 132/84 98 Weight Admit Weight 73.936 kg Weight 73.936 kg I&O: 05/02/17 05/03/17 05/04/17 06:59 06:59 06:59 Intake Total 800 Balance 800 Result Diagrams: 04/28/17 07:13 05/01/17 05:57 <Gutierrez Sena - Last Filed: 05/03/17 11:53> Phys Exam - Physical Examination Constitutional: NAD HEENT: moist MMs Respiratory: no wheezing, no rales, no rhonchi, clear to auscultation bilateral Cardiovascular: RRR, no significant murmur, no rub Gastrointestinal: soft, no distention, positive bowel sounds tender to palpation, voluntary guarding, no rebound Musculoskeletal: no edema, pulses present Neurological: non-focal, moves all 4 limbs Psychiatric: normal affect, A&O x 3 <Jeane Caballero - Last Filed: 05/03/17 07:29> Dx/Plan (1) Crohn disease Code(s): K50.90 - CROHN'S DISEASE, UNSPECIFIED, WITHOUT COMPLICATIONS Status: Acute QualifierTitle: Gastrointestinal tract location: unspecified location Digestive disease complication type: unspecified complication Qualified Code(s ): K50.919 - Crohn's disease, unspecified, with unspecified complications Plan: Acute Crohn's flare -Continue prednisone -Will restart fluids for concern for dehydration -Liquid diet with supplements as patient thinks he may be more likely to eat that -[place] and tramadol for pain -f/u with GI outpatient (2) Otitis media Code(s): H66.90 - OTITIS MEDIA, UNSPECIFIED, UNSPECIFIED EAR Status: Acute QualifierTitle: Otitis media type: unspecified Laterality: left Qualified Code(s): H66.92 - Otitis media, unspecified, left ear Plan: L acute otitis media -Continue amoxicillin (3) Substance abuse Code(s): F19.10 - OTHER PSYCHOACTIVE SUBSTANCE ABUSE, UNCOMPLICATED Status: Acute Plan: UDS positive for cannabis, 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 GI agreed and signed off. <Jeane Caballero - Last Filed: 05/03/17 07:29> Attending Addendum - Attending Addendum I personally evaluated the patient and discussed the management with Dr. Caballero. I agree with and repeated the History, Examination, Assessment and Plan documented above with any addition or exceptions noted below. Patient relatively unchanged today. Will discuss with GI. No BM, but has also not been eating. We will continue prednisone. DVT ppx with SCDs as he is quite mobile, GI ppx with protonix. <Gutierrez Sena - Last Filed: 05/03/17 11:53>
[2017-05-03] MEDS ORDERED: Sodium Chloride 0.9% 1,000 ML IV SCH ×2 (07:45→08:00)
[2017-05-03] MEDS: Enoxaparin Sodium 40 MG/0.4 ML SYRINGE SC SCH (09:48)
[2017-05-03] MEDS: predniSONE 20 MG TAB PO SCH (09:49)
[2017-05-03] MEDS: Nicotine 14 MG PATCH TD SCH (09:49)
[2017-05-03] MEDS: AMOXicillin 250 MG CAP PO SCH ×3 (09:50→20:23)
[2017-05-03] MEDS: HYDROcodone/Acetaminophen 7.5/325 mg Tablet PO PRN ×2 (10:04→18:13)
[2017-05-03] MEDS: Dicyclomine 20 MG TAB PO SCH ×3 (13:19→20:23)
[2017-05-03] MEDS: Promethazine 25 MG TAB PO PRN (20:28)
--- NOTE | 2017-05-03 22:28 | PRG ---
DATE OF SERVICE: 05/03/2017 SUBJECTIVE: The patient continues to have continued abdominal pain that was initially improved 2 day s ago, but has since worsened over the same time. He has also had resolution of his diarrhea and has not had a bowel movement over the last 48 hours. He also describes mild nausea, but has not had any vomiting over the last 24 hours. He currently denies any fevers, chills, shortness of breath, odyno phagia, dysphagia, or GI bleeding. OBJECTIVE: VITAL SIGNS: Temperature 97.9, pulse 66, blood pressure 120/79, respiratory rate 12, satting 97% on room air. GENERAL: Patient is lying comfortably in bed in no acute distress. He is alert and oriented x4. CARDIOVASCULAR: Regular rate and rhythm with no discernible murmurs, gallops, or rubs. RESPIRATORY: Clear to auscultation bilaterally with no discernible wheezes or rales. ABDOMEN: Normoactive bowel sounds, soft, nondistended, tenderness to palpation in the midepigastric and right upper quadrant. LABORATORY STUDIES: No current studies available for review today. IMAGING STUDIES: No current GI studies available for review. ASSESSMENT AND PLAN: Patient is a 36-year-old male with past medical history of Crohn's disease pres enting with probable Crohn's flare. Crohn's flare. Patient initially presented with a 1-2 week history of worsening abdominal pain and d iarrhea that had progressively gotten worse over the 2 days prior to admission. On admission, infect ious stool workup was negative for obvious pathogen and ultimately he was started on prednisone for p robable Crohn's flare. He was improving on treatment until approximately 2 days ago, when he had wor sening of his abdominal pain as well as increased nausea, vomiting, and resolution of his presenting diarrhea. However, today he did have one small bowel movement, there was some assisted inconsistency concerning to the patient because he was expecting a more expedited response to therapy. At this po int, it is unclear if his bowel may be having difficulty absorbing the prednisone and he may benefit from IV steroid administration or if he has Crohn's involvement of the upper GI tract as well as the lower GI tract. 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 At this time, we will transfer him over to IV administration of steroids in case bioavailability is not amenable to absorption in the gut due to active inflammation. We will also start patient on a zathioprine for additional immunosuppression for long-term treatment of his Crohn's disease. RECOMMENDATIONS: 1. We will transfer patient to methylprednisolone 40 mg b.i.d. for further treatment of his Crohn's exacerbation. 2. We will start patient on azathioprine 100 mg daily. He will need to have close monitoring of his CBC to acknowledge cytopenias. 3. Would avoid use of narcotics in this patient, as it could be constipating and further contributin g to abdominal pain. 4. Agree with primary team with administration of IV fluid given his decreased oral intake but with decreased the oral fluid as his intake increases. 5. We consider use of MiraLax for possible constipation, although its use may be premature at this t oli.
[2017-05-04] MEDS: HYDROcodone/Acetaminophen 7.5/325 mg Tablet PO PRN ×2 (05:04→21:16)
[2017-05-04] MEDS: Promethazine 25 MG TAB PO PRN ×2 (05:05→19:37)
[2017-05-04] MEDS: Nicotine 14 MG PATCH TD SCH ×2 (05:30→17:35)
[2017-05-04 07:29] LABS: #Eosinphils 0.1 thou/uL (0.0-0.7); #Lymphocytes 2.4 thou/uL (1.20-3.40); #Monocytes 0.5 thou/uL (0.11-0.59); #Neutrophils 4.3 thou/uL (1.40-6.50); %Basophils 0.3 % (0.0-1.0); %Eosinophils 0.8 % (0.0-10.0); %Lymphocytes 33.2 % (21.0-51.0); %Monocytes 7.4 % (0.0-10.0); %Neutrophils 58.3 % (42.0-75.0); Hemoglobin 13.3 g/dL (14.0-18.0); Mean Corpuscular HGB CONC 33.2 g/dL (32.0-36.0); Mean Corpuscular Hemoglobin 30.1 pg (27.0-31.0); Mean Corpuscular Volume 90.6 fl (80.0-94.0); Mean Platelet Volume 7.2 fL (7.4-10.4); Platelet Count 222 thou/uL (130-400); RBC Distribution Width 11.9 % (11.5-14.5); Red Blood Cell (RBC) Count 4.43 mill/uL (4.70-6.10); White Blood Cell (WBC) Count 7.3 thou/uL (4.8-10.8)
[2017-05-04 07:33] LABS: ALT (SGPT) 8 U/L (8-55); AST (SGOT) 12 U/L (5-34); Albumin 3.5 g/dL (3.5-5.0); Alkaline Phosphatase 39 U/L (40-150); Anion Gap 12 mmol/L (10-20); BUN (Urea Nitrogen) 7 mg/dL (8.9-20.6); Bilirubin, Total 0.5 mg/dL (0.2-1.2); CRP (Inflammatory) Less than 0.50 mg/dL (= or < 0.5); Calc. Creatinine Clearance 134 mL/min (70-130); Calcium 9.3 mg/dL (7.8-10.44); Carbon Dioxide 27 mmol/L (22-29); Chloride 101 mmol/L (98-107); Estimated GFR-MDRD Greater than 90; Globulin 2.8 g/dL (2.4-3.5); Glucose 93 mg/dL (70-105); Potassium 3.3 mmol/L (3.5-5.1); Protein, Total 6.3 g/dL (6.0-8.3); Sodium 137 mmol/L (136-145)
[2017-05-04] MEDS: Enoxaparin Sodium 40 MG/0.4 ML SYRINGE SC SCH (08:14)
[2017-05-04] MEDS: AMOXicillin 250 MG CAP PO SCH ×3 (08:15→21:07)
[2017-05-04] MEDS: Dicyclomine 20 MG TAB PO SCH ×4 (08:15→21:06)
[2017-05-04] MEDS: azaTHIOprine 50 MG TAB PO SCH (08:15)
[2017-05-04] MEDS: Acetaminophen 325 MG TAB PO SCH ×3 (08:17→16:52)
--- NOTE | 2017-05-04 09:40 | PDOC.FM ---
- Subjective Subjective: pt reports improvement in pain. Occasional nausea. Had bm yesterday and had some relief of symptoms with BM. Discussed in depth with pt goal of trying to reduce opiate use and will schedule tylenol for pain control as well as trramadol for mod to severe pain, pt agreeable. Denies CP, SOB, diarrhea - Objective Vital Signs & Weight: Vital Signs (12 hours) Temp Pulse Resp BP Pulse Ox 05/04/17 08:15 97.7 F 57 L 14 97 05/04/17 07:35 97.7 F 57 L 14 135/85 98 Weight Admit Weight 73.936 kg Weight 73.936 kg I&O: 05/03/17 05/04/17 05/05/17 06:59 06:59 06:59 Intake Total 400 Balance 400 Result Diagrams: 05/04/17 07:04 05/04/17 07:04 <James Clayton - Last Filed: 05/04/17 10:25> - Objective Vital Signs & Weight: Vital Signs (12 hours) Temp Pulse Resp BP Pulse Ox 05/04/17 08:15 97.7 F 57 L 14 97 05/04/17 07:35 97.7 F 57 L 14 135/85 98 Weight Admit Weight 73.936 kg Weight 73.936 kg I&O: 05/03/17 05/04/17 05/05/17 06:59 06:59 06:59 Intake Total 400 Balance 400 Result Diagrams: 05/04/17 07:04 05/04/17 07:04 <Anne Fatima - Last Filed: 05/04/17 13:00> Phys Exam - Physical Examination Constitutional: NAD HEENT: PERRLA, sclera anicteric Neck: no JVD Respiratory: no wheezing, no rales, no rhonchi, clear to auscultation bilateral Cardiovascular: RRR, no significant murmur, no rub Gastrointestinal: soft, non-tender, no distention, positive bowel sounds Musculoskeletal: no edema, pulses present Neurological: non-focal, moves all 4 limbs Psychiatric: normal affect <James Clayton - Last Filed: 05/04/17 10:25> Dx/Plan (1) Crohn disease Code(s): K50.90 - CROHN'S DISEASE, UNSPECIFIED, WITHOUT COMPLICATIONS Status: Acute QualifierTitle: Gastrointestinal tract location: unspecified location Digestive disease complication type: unspecified complication Qualified Code(s ): K50.919 - Crohn's disease, unspecified, with unspecified complications (2) Gastroenteritis Code(s): K52.9 - NONINFECTIVE GASTROENTERITIS AND COLITIS, UNSPECIFIED Status : Acute (3) Liver mass Code(s): R16.0 - HEPATOMEGALY, NOT ELSEWHERE CLASSIFIED Status: Acute (4) Otitis media Code(s): H66.90 - OTITIS MEDIA, UNSPECIFIED, UNSPECIFIED EAR Status: Acute QualifierTitle: Otitis media type: unspecified Laterality: left Qualified Code(s): H66.92 - Otitis media, unspecified, left ear - Plan Plan: continue amoxicillin for AOM pt had mild improvement of symptoms with bm, will de-escalate pain medications per GI recs as this is likely contributing to constipation to tylenol scheduled as well as tramadol and norco only for breakthrough miralax prn for constipation phenergan prn for nausea/vomiting iv steroids and azathioprine per GI recs <James Clayton - Last Filed: 05/04/17 10:25> Attending Addendum - Attending Addendum I personally evaluated the patient and discussed the management with Dr. Clayton I agree with the History, Examination, Assessment and Plan documented above with any addition or exceptions noted below- Patient reports decreased pain; tolerating po. Afebrile VSS. A/P: 1) Crohn's flare- appreciate GI assistance; Continue IV steroids and azathioprine. Minimizing narcotics due to constipation. Continue current meds and anticipate change to po steroids again soon. <Anne Fatima - Last Filed: 05/04/17 13:00>
[2017-05-04] MEDS ORDERED: Potassium Chloride 40 MEQ in Sodium Chloride 0.9% 500 ML IVPB SCH (10:30)
[2017-05-04] MEDS ORDERED: Polyethylene Glycol 3350 17 GM Packet PO PRN (14:26)
--- NOTE | 2017-05-04 15:26 | PRG ---
DATE OF SERVICE: 05/04/2017 SUBJECTIVE: The patient states that he has had improvement in his abdominal pain over the last 12-24 hours when compared to previous. He also states that he has not had any further nausea or vomiting over this time period as well. He did have a bowel movement yesterday, but since then he has not had any further bowel movements over the last 12-24 hours. Currently, denies any fevers, chills, shortn ess of breath, odynophagia, dysphagia, dysphagia or GI bleeding. OBJECTIVE: VITAL SIGNS: Temperature 97.7, pulse 57, blood pressure 135/85, respiratory rate 14, satting 97% on room air. GENERAL: The patient is lying in bed comfortably in no acute distress. He is alert and oriented x4. CARDIOVASCULAR: Regular rate and rhythm with no discernible murmurs, gallops or rubs. RESPIRATORY: Clear to auscultation bilaterally with no discernible wheezes or rales. ABDOMEN: Normoactive bowel sounds, soft, nondistended. Mild tenderness to palpation in the midepiga stric region. LABORATORY STUDIES: CBC with a white blood cell count of 7.3, hemoglobin 13.3, hematocrit 40.1, plat elets 222. Chemistry with a sodium of 137, potassium of 3.3, chloride 101, CO2 of 27, BUN 7, creatin ine 0.78, glucose 93, ESR 19, CRP 0.5. IMAGING STUDIES: No current GI imaging studies are available for review. ASSESSMENT AND PLAN: The patient is a 36-year-old male with past medical history of Crohn disease pr esenting with probable Crohn flare. Crohn flare, patient with improvement in his abdominal pain over the last 12-24 hours, resulting in i ncreased appetite. He was subsequently transferred from IV and oral narcotics to Tylenol in an attem pt to minimize his narcotic requirement to which he has responded well enough per nursing staff with no further complaints of significant abdominal pain. He, however, has not had a bowel movement since yesterday and may need some assistance with this. At this point concerning his steroid requirement, I would recommend continued IV steroids until discharge and transfer to oral steroids on discharge. RECOMMENDATIONS: 1. Continue patient on methylprednisolone 40 mg b.i.d. for treatment of his Crohn exacerbation. We would continue this to discharge with transfer the patient to prednisone 40 mg daily on discharge. 2. We would continue azathioprine 100 mg daily. He will need to have close monitoring of his CBC to evaluate for possible cytopenias associated with his medication. 3. Continue to minimize narcotic use as this could be constipating and further contributing to abdom inal pain. 4. Would decrease or stop patient's IV fluid if tolerating oral intake. 5. Would use MiraLax 17 grams/1 capful 4 as needed for constipation. 6. Plan is for patient to be discharged with future plans to be placed on Humira for maintenance the rapy for his Crohn disease.
[2017-05-04] MEDS ORDERED: Potassium Chloride 20 MEQ TAB PO SCH (16:45)
[2017-05-04] MEDS: Polyethylene Glycol 3350 17 GM Packet PO PRN (16:50)
[2017-05-04] MEDS: traMADol HCl 50 MG TAB PO PRN (19:36)
[2017-05-05] MEDS: Acetaminophen 325 MG TAB PO SCH ×5 (00:29→23:55)
[2017-05-05] MEDS: Promethazine 25 MG TAB PO PRN ×4 (00:33→23:56)
[2017-05-05] MEDS: traMADol HCl 50 MG TAB PO PRN ×3 (00:33→20:46)
[2017-05-05] MEDS: Polyethylene Glycol 3350 17 GM Packet PO PRN (08:29)
[2017-05-05] MEDS: Dicyclomine 20 MG TAB PO SCH ×4 (08:30→20:47)
[2017-05-05] MEDS: azaTHIOprine 50 MG TAB PO SCH (08:30)
[2017-05-05] MEDS: Enoxaparin Sodium 40 MG/0.4 ML SYRINGE SC SCH (08:31)
[2017-05-05] MEDS: Nicotine 14 MG PATCH TD SCH (08:33)
[2017-05-05] MEDS: AMOXicillin 250 MG CAP PO SCH ×3 (08:40→21:00)
--- NOTE | 2017-05-05 09:11 | PDOC.FM ---
- Subjective Subjective: Pt required 1 norco yesterday evening as he was having nausea and pain. Otherwise, pain was well controlled all day with scheduled tylenol and prn tramadol. He has not had BM in >24 hours and received miralax yesterday afternoon. He has discomfort and pain, mostly localizing to the LLQ. Denies odynophagia, dysphagia, hematochezia, mucous in stool, swelling and is tolerating a normal diet. Goals will be pain management and try and encourage normal bowel regimen. - Objective Vital Signs & Weight: Vital Signs (12 hours) Temp Pulse Resp BP Pulse Ox 05/05/17 08:46 97.9 F 75 14 98 05/05/17 07:40 97.9 F 75 14 130/72 98 Weight Admit Weight 73.936 kg Weight 73.936 kg I&O: 05/04/17 05/05/17 05/06/17 06:59 06:59 06:59 Intake Total 400 1700 Balance 400 1700 Result Diagrams: 05/04/17 07:04 05/04/17 07:04 <James Clayton - Last Filed: 05/05/17 09:16> - Objective Vital Signs & Weight: Vital Signs (12 hours) Temp Pulse Resp BP Pulse Ox 05/05/17 08:46 97.9 F 75 14 98 05/05/17 07:40 97.9 F 75 14 130/72 98 Weight Admit Weight 73.936 kg Weight 73.936 kg I&O: 05/04/17 05/05/17 05/06/17 06:59 06:59 06:59 Intake Total 400 1700 Balance 400 1700 Result Diagrams: 05/06/17 08:29 05/06/17 08:29 <Anne Fatima - Last Filed: 05/07/17 17:34> Phys Exam - Physical Examination Constitutional: NAD HEENT: PERRLA, sclera anicteric Respiratory: no wheezing, no rales, no rhonchi, clear to auscultation bilateral Cardiovascular: RRR, no significant murmur, no rub Gastrointestinal: soft, no distention, positive bowel sounds ttp LLQ Musculoskeletal: no edema, pulses present Neurological: non-focal, moves all 4 limbs <James Clayton - Last Filed: 05/05/17 09:16> Dx/Plan (1) Crohn disease Code(s): K50.90 - CROHN'S DISEASE, UNSPECIFIED, WITHOUT COMPLICATIONS Status: Acute QualifierTitle: Gastrointestinal tract location: unspecified location Digestive disease complication type: unspecified complication Qualified Code(s ): K50.919 - Crohn's disease, unspecified, with unspecified complications (2) Gastroenteritis Code(s): K52.9 - NONINFECTIVE GASTROENTERITIS AND COLITIS, UNSPECIFIED Status : Acute (3) Liver mass Code(s): R16.0 - HEPATOMEGALY, NOT ELSEWHERE CLASSIFIED Status: Acute (4) Otitis media Code(s): H66.90 - OTITIS MEDIA, UNSPECIFIED, UNSPECIFIED EAR Status: Acute QualifierTitle: Otitis media type: unspecified Laterality: left Qualified Code(s): H66.92 - Otitis media, unspecified, left ear - Plan Plan: continue amoxicillin for AOM for the crohns flare we will continue current pain regimen and miralax as well as IV steroids and azathioprine per GI recs. Continue to achieve adequate pain control with tylenol and prn tramadol and avoid excessive use of narcotics as this is likely contributing partially to pts constipation. Given location of pain and no BM with normal diet yesterday, pain and discomfort likely 2/2 constipation. Give miralax and monitor Is/Os. Overall pt continuing to improve. GI consulted, appreciate recs. <James Clayton - Last Filed: 05/05/17 09:16> Attending Addendum - Attending Addendum I personally evaluated the patient and discussed the management with Dr. Clayton I agree with the History, Examination, Assessment and Plan documented above with any addition or exceptions noted below- Patient reports some pain this morning in left lower abdomen but states that mornings are usually worse for him. Tolerated regular diet last night. Has not had BM. Afebrile VSS A/P: 1) Crohn's flare- improved; continue steroids and azathioprine. 2) Constipation- continue miralax. Plan to d/c home later today if has BM and continues to tolerate po. F/U outpatient with GI. <Anne Fatima - Last Filed: 05/07/17 17:34>
--- NOTE | 2017-05-05 14:21 | PRG ---
DATE OF SERVICE: 05/05/2017 SUBJECTIVE: The patient states that he continues to have improvement of his abdominal pain over the last 12-24 hours. However, he does state that he has not had a bowel movement in approximately 2 days and the primary location of his abdominal pain now is in the suprapubic/left lower quadrant. Currently, denies any nausea, vomiting, fevers, chills, shortness of breath, odynophagia, dysphagia, or GI bleeding. LABORATORY DATA: No studies available for review. IMAGING STUDIES: No imaging studies available for review. ASSESSMENT AND PLAN: The patient is a 36-year-old male with past medical history of Crohn's disease presenting with Crohn's flare. Crohn's flare. The patient has had improvement in his abdominal pain over the last 12-24 hours, but does continue to have some suprapubic abdominal pain which may be generated by constipation and his lack of bowel movement over the last 2 days as well. He did tolerate transfer to Tylenol yesterday with minimization of his oral narcotics, which is a good sign in preparation for discharge; however, he continues not to have a bowel movement, which is probably contributing to his abdominal pain and he has since gotten one dose of MiraLax and would probably benefit from another dose as well. At this point, concerning his steroid requirement, I would recommend continued IV steroids until discharge and transfer to oral steroids on discharge. RECOMMENDATIONS: 1. Continue patient on methylprednisolone 40 mg b.i.d. for treatment of the Crohn's exacerbation and transferred to prednisone 40 mg daily on discharge. 2. Would continue azathioprine 100 mg daily. Would periodically draw CBCs for close monitoring of his cell counts, and possible cytopenias associated with this medication. 3. Continue to minimize narcotic use. 4. Would use MiraLax 17 grams/1 capful daily as needed for constipation. [facility]
[2017-05-06] MEDS: Acetaminophen 325 MG TAB PO SCH ×3 (05:56→17:25)
[2017-05-06] MEDS: traMADol HCl 50 MG TAB PO PRN ×2 (05:57→17:25)
--- NOTE | 2017-05-06 08:25 | PDOC.FM ---
- Subjective Subjective: Pt reports some pain today, but states it is improved from prior days. Still has not had a BM. Encouraged ambulation and attempting to decrease narcotic pain medications. Will continue miralax for now. From a crohns standpoint, pt seems to be returning to baseline. Denies NVD, decreased appetite. He is tolerating regular diet. - Objective Vital Signs & Weight: Vital Signs (12 hours) Temp Pulse Resp BP Pulse Ox 05/06/17 07:45 97.6 F 72 14 133/76 97 Weight Admit Weight 73.936 kg Weight 73.936 kg I&O: 05/05/17 05/06/17 05/07/17 06:59 06:59 06:59 Intake Total 1700 1520 Balance 1700 1520 Result Diagrams: 05/04/17 07:04 05/04/17 07:04 <James Clayton - Last Filed: 05/06/17 08:23> - Objective Vital Signs & Weight: Vital Signs (12 hours) Temp Pulse Resp BP Pulse Ox 05/06/17 08:45 97.6 F 72 14 97 05/06/17 07:45 97.6 F 72 14 133/76 97 Weight Admit Weight 73.936 kg Weight 73.936 kg I&O: 05/05/17 05/06/17 05/07/17 06:59 06:59 06:59 Intake Total 1700 1520 Balance 1700 1520 Result Diagrams: 05/06/17 08:29 05/06/17 08:29 <Anne Fatima - Last Filed: 05/06/17 11:45> Phys Exam - Physical Examination Constitutional: NAD HEENT: PERRLA, sclera anicteric Neck: no nodes, no JVD Respiratory: no wheezing, no rales, no rhonchi, clear to auscultation bilateral Cardiovascular: RRR, no significant murmur, no rub Gastrointestinal: soft, non-tender, no distention, positive bowel sounds Musculoskeletal: no edema, pulses present Neurological: non-focal, normal sensation, moves all 4 limbs <James Clayton - Last Filed: 05/06/17 08:23> Dx/Plan (1) Crohn disease Code(s): K50.90 - CROHN'S DISEASE, UNSPECIFIED, WITHOUT COMPLICATIONS Status: Acute QualifierTitle: Gastrointestinal tract location: unspecified location Digestive disease complication type: unspecified complication Qualified Code(s ): K50.919 - Crohn's disease, unspecified, with unspecified complications (2) Gastroenteritis Code(s): K52.9 - NONINFECTIVE GASTROENTERITIS AND COLITIS, UNSPECIFIED Status : Acute (3) Liver mass Code(s): R16.0 - HEPATOMEGALY, NOT ELSEWHERE CLASSIFIED Status: Acute (4) Otitis media Code(s): H66.90 - OTITIS MEDIA, UNSPECIFIED, UNSPECIFIED EAR Status: Acute QualifierTitle: Otitis media type: unspecified Laterality: left Qualified Code(s): H66.92 - Otitis media, unspecified, left ear - Plan Plan: continue current regimen of IV steroids,azathioiprine, tylenol scheduled and tramadol prn for pain. CBC pending, per GI recs. Will continue miralax for now in hopes constipation resolves, appreciate recs. Will DC amoxicillin for AOM. <James Clayton - Last Filed: 05/06/17 08:23> Attending Addendum - Attending Addendum I personally evaluated the patient and discussed the management with Dr. Clayton I agree with the History, Examination, Assessment and Plan documented above with any addition or exceptions noted below- Patient overall feeling better; tolerating diet; pain controlled. Still has not had BM. Afebrile VSS A/P: 1) Crohn's flare- improved; continue azathioprine and steroids. 2) constipation- change bentyl to prn and continue miralax. Consider addition of lactulose if not improved. <Anne Fatima - Last Filed: 05/06/17 11:45>
[2017-05-06] MEDS: Enoxaparin Sodium 40 MG/0.4 ML SYRINGE SC SCH (08:37)
[2017-05-06] MEDS: azaTHIOprine 50 MG TAB PO SCH (08:38)
[2017-05-06] MEDS: Dicyclomine 20 MG TAB PO SCH (08:38)
[2017-05-06] MEDS: Nicotine 14 MG PATCH TD SCH (08:44)
[2017-05-06 08:51] LABS: #Lymphocytes 1.2 thou/uL (1.20-3.40); #Monocytes 0.6 thou/uL (0.11-0.59); #Neutrophils 11.1 thou/uL (1.40-6.50); %Eosinophils 0.2 % (0.0-10.0); %Monocytes 4.8 % (0.0-10.0); Hemoglobin 14.3 g/dL (14.0-18.0); Mean Corpuscular HGB CONC 32.7 g/dL (32.0-36.0); Mean Corpuscular Hemoglobin 29.5 pg (27.0-31.0); Mean Corpuscular Volume 90.2 fl (80.0-94.0); Mean Platelet Volume 7.1 fL (7.4-10.4); Platelet Count 273 thou/uL (130-400); Red Blood Cell (RBC) Count 4.84 mill/uL (4.70-6.10); White Blood Cell (WBC) Count 12.9 thou/uL (4.8-10.8)
[2017-05-06 08:57] LABS: Anion Gap 11 mmol/L (10-20); BUN (Urea Nitrogen) 16 mg/dL (8.9-20.6); Calc. Creatinine Clearance 128 mL/min (70-130); Calcium 9.4 mg/dL (7.8-10.44); Carbon Dioxide 27 mmol/L (22-29); Chloride 101 mmol/L (98-107); Estimated GFR-MDRD Greater than 90; Glucose 119 mg/dL (70-105); Potassium 4.4 mmol/L (3.5-5.1); Sodium 135 mmol/L (136-145)
[2017-05-06] MEDS ORDERED: Dicyclomine 20 MG TAB PO PRN (10:43)
[2017-05-06] MEDS: Promethazine 25 MG TAB PO PRN ×2 (12:39→17:26)
[2017-05-06] MEDS ORDERED: Magnesium Citrate 300 ML BOT PO SCH (14:00)
--- NOTE | 2017-05-06 15:39 | PRG ---
DATE OF SERVICE: 05/06/2017 REASON FOR CONSULTATION: Crohn's flare. SUBJECTIVE: The patient states that he continues to have improvement in his abdominal pain, but has remained relatively unchanged for the last 12-24 hours. He has not had a bowel movement in approxima tely 2-3 days with the primary location of his pain being in the left upper quadrant and left lower q uadrant. Currently, denies any nausea, vomiting, fevers, chills, odynophagia, dysphagia, or GI bleed ing. OBJECTIVE: VITAL SIGNS: Temperature 97.6, pulse 72, blood pressure 133/76, respiratory rate 14, satting 97% on room air. LABORATORY DATA: CBC with a white blood cell count of 12.9, hemoglobin 14.3, hematocrit 43.7, platel ets 273. Chemistry with sodium of 135, potassium 4.4, chloride 101, CO2 27, BUN 16, creatinine 0.82, glucose 119. IMAGING STUDIES: No imaging studies are available for review. ASSESSMENT AND PLAN: The patient is a 36-year-old male with past medical history of Crohn's disease presenting with a Crohn's disease flare. Crohn's flare. The patient has had improvement of his abdominal pain over the last few days with adm inistration of IV steroids and decrease in inflammatory markers indicating response to the antiinflam matory medications. He has tolerated transferred Tylenol yesterday with minimization of his oral stephan cotics, which is a good sign in preparation for discharge; however, he still has not had a bowel move ment over the last 48 hours despite the administration of 2 doses of MiraLax. At this point, it seem s that his abdominal pain is more likely to be caused by constipation and would benefit from a laxati ve at this point. Also concerning a steroid requirement, I would recommend continued IV steroids unt il discharge and transfer to oral steroids on discharge. RECOMMENDATIONS: 1. Continue patient on methylprednisolone 40 mg b.i.d. for treatment of Crohn's exacerbation and tra nsfer to prednisone 40 mg daily on discharge. 2. We will continue azathioprine 100 mg daily. He will need close followup with routine CBCs drawn in 2 weeks and 4 weeks after discharge from possible cytopenias associated with his medication. 3. Continue to minimize narcotic use. 4. Can continue MiraLax daily as needed for constipation. 5. We will administer magnesium citrate 1 bottle x1 in an effort to facilitate having a bowel moveme nt.
[2017-05-06] MEDS: HYDROcodone/Acetaminophen 7.5/325 mg Tablet PO PRN (20:42)
[2017-05-07] MEDS: Acetaminophen 325 MG TAB PO SCH ×3 (00:40→12:39)
[2017-05-07] MEDS: traMADol HCl 50 MG TAB PO PRN (00:40)
[2017-05-07] MEDS: Promethazine 25 MG TAB PO PRN ×2 (00:42→08:21)
[2017-05-07 07:58] VITALS: BP 136/78; TEMP 97.9
[2017-05-07] MEDS: azaTHIOprine 50 MG TAB PO SCH (08:20)
--- NOTE | 2017-05-07 09:22 | PDOC.FM ---
- Subjective Subjective: Pt had no acute events overnight. Denies fever, chills, sweats, NVDC, CP, SOB. Denies 4ear pain. Still no bowel movement, but pt reports he "feel[s] it coming. " - Objective Vital Signs & Weight: Vital Signs (12 hours) Temp Pulse Resp BP Pulse Ox 05/07/17 07:57 97.9 F 81 16 136/78 98 Weight Admit Weight 73.936 kg Weight 73.936 kg I&O: 05/06/17 05/07/17 05/08/17 06:59 06:59 06:59 Intake Total 1520 2120 Balance 1520 2120 Result Diagrams: 05/06/17 08:29 05/06/17 08:29 <James Clayton - Last Filed: 05/07/17 09:21> - Objective Vital Signs & Weight: Vital Signs (12 hours) Temp Pulse Resp BP Pulse Ox 05/07/17 08:00 97.9 F 81 16 98 05/07/17 07:57 97.9 F 81 16 136/78 98 Weight Admit Weight 73.936 kg Weight 73.936 kg I&O: 05/06/17 05/07/17 05/08/17 06:59 06:59 06:59 Intake Total 1520 2120 Balance 1520 0 Result Diagrams: 05/06/17 08:29 05/06/17 08:29 <Anne Fatima - Last Filed: 05/07/17 11:21> Phys Exam - Physical Examination Constitutional: NAD HEENT: PERRLA, sclera anicteric Respiratory: no wheezing, no rales, no rhonchi, clear to auscultation bilateral Cardiovascular: RRR, no significant murmur, no rub Gastrointestinal: soft, no distention, positive bowel sounds LLQ mildly ttp Musculoskeletal: no edema, pulses present Neurological: non-focal, moves all 4 limbs <James Clayton - Last Filed: 05/07/17 09:21> Dx/Plan (1) Crohn disease Code(s): K50.90 - CROHN'S DISEASE, UNSPECIFIED, WITHOUT COMPLICATIONS Status: Acute QualifierTitle: Gastrointestinal tract location: unspecified location Digestive disease complication type: unspecified complication Qualified Code(s ): K50.919 - Crohn's disease, unspecified, with unspecified complications (2) Gastroenteritis Code(s): K52.9 - NONINFECTIVE GASTROENTERITIS AND COLITIS, UNSPECIFIED Status : Acute (3) Liver mass Code(s): R16.0 - HEPATOMEGALY, NOT ELSEWHERE CLASSIFIED Status: Chronic (4) Otitis media Code(s): H66.90 - OTITIS MEDIA, UNSPECIFIED, UNSPECIFIED EAR Status: Resolved QualifierTitle: Otitis media type: unspecified Laterality: left Qualified Code(s): H66.92 - Otitis media, unspecified, left ear - Plan Plan: pt still has yet to have bm maintaining appetite and pain improved continue current regimen mag citrate for constipation, consider enema if still no BM this am GI consulted, appreciate recs <James Clayton - Last Filed: 05/07/17 09:21> Attending Addendum - Attending Addendum I personally evaluated the patient and discussed the management with Dr. Clayton I agree with the History, Examination, Assessment and Plan documented above with any addition or exceptions noted below- Patient without complaints. No BM yet but feels like he may need to have one. Afebrile VSS A/P: 1) Croh'n flare- improved. Continue current meds. 2) Constipation- continue daily miralax; no relief with Mg citrate; will try lactulose today. <Anne Fatima - Last Filed: 05/07/17 11:21>
[2017-05-07] MEDS: Nicotine 14 MG PATCH TD SCH (12:37)
[2017-05-07] MEDS: Enoxaparin Sodium 40 MG/0.4 ML SYRINGE SC SCH (12:43)
--- NOTE | 2017-05-07 13:42 | PRG ---
DATE OF SERVICE: 05/07/2017 REASON FOR CONSULTATION: Crohn's flare. SUBJECTIVE: The patient has had improvement of his abdominal pain even within the last 24 hours with no abdominal pain observed today; however, he has not had a bowel movement in approximately 3-4 days despite the use of MiraLax 1 capful daily as well as magnesium citrate yesterday. Currently, denies any nausea, vomiting, fevers, chills, odynophagia, dysphagia, GI bleeding or abdominal pain. LABORATORY DATA: No current studies available for review. IMAGING STUDIES: No imaging studies are available for review. ASSESSMENT AND PLAN: The patient is a 36-year-old male with past medical history of Crohn's disease presenting with Crohn's flare. Crohn's flare. The patient has had significant improvement in his abdominal pain during this hospitalization with the administration of IV steroids after determination of a noninfectious etiology of his abdominal pain/diarrhea. He has also had complete resolution of the diarrhea and is now exhibiting more of a constipation type picture as evidenced by not having a bowel movement within the last 72 hours. However, his abdominal pain has completely resolved upon interview today and would likely benefit from laxative use to initiate having a bowel movement. Other than that, patient is stable enough for discharge and follow up in the GI Clinic. RECOMMENDATIONS: 1. Continue patient on methylprednisolone 40 mg twice daily for treatment of Crohn's exacerbation with transfer to prednisone 40 mg daily on discharge. 2. Would continue azathioprine 100 mg daily. We will draw a repeat CBC in approximately 2 weeks, and follow it up in GI Clinic. 3. Would continue to minimize narcotic use. 4. Would monitor for signs of having a bowel movement, but does not necessarily need to be inpatient for this evaluation. We will sign off at this time. Please have the patient schedule an appointment with follow up in the GI Clinic within 2 weeks of discharge. Please call with any additional questions. NANCI
--- NOTE | 2017-05-08 13:52 | DIS-2 ---
DATE OF SERVICE: 05/15/2017. DATE OF ADMISSION: 04/28/2017. DATE OF DISCHARGE: 05/07/2017. RESIDENT PHYSICIAN: James Clayton DO ADMITTING ATTENDING: Gutierrez Sena MD DISCHARGE ATTENDING: Anne Fatima MD LOCATION: [place], [place]. CONSULTATION: Gastroenterology, Dr. Ruiz Verdugo. PROCEDURES: 1. Abdomen and pelvis CT done on 04/27/2017 showed mild colonic diverticulosis, right liver lobe mas s. This should be evaluated with a [id number] RBC scan. If the scan is positive for william ngioma, workup should be stopped. If not, an ultrasound should be performed with subsequent biopsy i f needed. 2. Abdomen CT done on 04/28/2017 showed a liver mass consistent with hemangioma. PRIMARY DIAGNOSIS: Crohn's disease, acute flare. SECONDARY DIAGNOSES: 1. Otitis media. 2. Liver mass. 3. Gastroenteritis. 4. Substance abuse. DISCHARGE MEDICATIONS: 1. Azathioprine 100 mg p.o. daily. 2. Dicyclomine 20 mg p.o. 4 times a day as needed. 2. Zofran 4 mg p.o. q.6 hours. 3. Protonix 40 mg p.o. daily. 4. MiraLax 17 grams daily. 5. Prednisone 40 mg daily. 6. Phenergan 25 mg p.o. q.6 hours. 7. Tramadol 50 mg p.o. q.6 hours as needed. DISCONTINUED MEDICATIONS: None. HISTORY OF PRESENT ILLNESS/HOSPITAL COURSE: The patient is a 36-year-old male with a past medical hi story of Crohn's disease, initially presented with an acute Crohn's flare with associated bloody muco usy stools. He was started on prednisone as well as Zofran and Phenergan for control of his symptoms and alleviation of the Crohn's flare. On initial presentation, the patient was afebrile with no adriana kocytosis and a normal CMP. His CRP was elevated at 1.7. Urinalysis was negative. Urine drug scree n was performed and was positive for cannabinoids, as well as opiates; however, the patient was given narcotics for pain control in the emergency department prior to UDS sample being taken. The patient was continued on prednisone. Gastroenterology was consulted, at which point, the patient was starte d on azathioprine and his flare eventually subsided. The patient's hospital course was complicated b y persistent pain and difficulty to wean off IV steroids. He was ultimately continued on IV steroids throughout the duration of his hospital stay and discharged home with oral steroids after the patien t was tolerating p.o. and passing flatus. The patient left the hospital in stable condition. DISCHARGE INSTRUCTIONS: 1. Location: Home. 2. Diet: Regular. 3. Activity: Ad praveena. 4. Followup: Follow up with [facility] in 7-10 days following discharge and follow up [facility] Gastroenterology, Dr. Verdugo, in 2-3 weeks following discharge.
== END 2017-05-07 15:35 | disposition home or self-care (01) | DRG 387 ==
LOC: ERS 14:52 → OBSVTOIN 20:58 → ONC 20:58
PROVIDERS: ADMIT Student in an Organized Health Care Education/Training Program; ATTEND Student in an Organized Health Care Education/Training Program
DX: K50.90 Crohn's disease, unspecified, without complications (principal); D18.03 Hemangioma of intra-abdominal structures; R19.7 Diarrhea, unspecified; F17.210 Nicotine dependence, cigarettes, uncomplicated; F12.10 Cannabis abuse, uncomplicated; H66.92 Otitis media, unspecified, left ear; K57.30 Diverticulosis of large intestine without perforation or abscess without bleeding; K59.00 Constipation, unspecified
CPT/HCPCS: 36415; 74170; 74177; 80048; 80053; 80306; 81003; 81015; 85025; 85652; 86140; 87045; 87046; 87324; 87328; 87329; 87449; 87804; 87899; 90471; 90682; 96361; 96374; 96375; 96376; 99406; A4216; C9113; G0008; J1650; J2270; J2405; J2920; J3010; J3480; J7050; J7500; J7506; Q0162; Q2036

== ENCOUNTER 2024-04-15 16:16 | Inpatient (IN) | payer SELFPAY ==
[2024-04-15 17:08] LABS: #Basophils 0.07 10x3/uL (0.0-0.2); %Basophils 0.7 % (0.0-1.0); %Eosinophils 1.9 % (0.0-10.0); %Lymphocytes 19.2 % (21.0-51.0); %Monocytes 6.8 % (0.0-10.0); %Neutrophils 70.9 % (42.0-75.0); Hematocrit 40.4 % (42.0-52.0); Hemoglobin 13.8 g/dL (14.0-18.0); Mean Corpuscular HGB CONC 34.2 g/dL (32.0-36.0); Mean Corpuscular Hemoglobin 30.5 pg (27.0-31.0); Mean Corpuscular Volume 89.4 fL (78.0-98.0); Mean Platelet Volume 9.3 fL (7.4-10.4); Platelet Count 244 10x3/uL (130-400); RBC Distribution Width 13.1 % (11.5-14.5); Red Blood Cell (RBC) Count 4.52 mill/uL (4.70-6.10)
[2024-04-15 17:26] LABS: ALT (SGPT) 18 U/L (8-55); AST (SGOT) 19 U/L (5-34); Albumin 3.5 g/dL (3.5-5.0); Alkaline Phosphatase 47 U/L (40-110); Anion Gap 13 mmol/L (10-20); BUN (Urea Nitrogen) 17 mg/dL (8.9-20.6); Bilirubin, Total 0.3 mg/dL (0.2-1.2); Calc. Creatinine Clearance 0 mL/min (70-130); Calcium 8.8 mg/dL (7.8-10.44); Carbon Dioxide 22 mmol/L (22-29); Chloride 106 mmol/L (98-107); Estimated GFR 78; Globulin 3.6 g/dL (2.4-3.5); Glucose 101 mg/dL (70-105); Potassium 3.6 mmol/L (3.5-5.1); Protein, Total 7.1 g/dL (6.0-8.3); Sodium 137 mmol/L (136-145)
[2024-04-15] MEDS ORDERED: Morphine 2 MG/ML VIAL ONE (18:00)
[2024-04-15] MEDS ORDERED: methylPREDNISolone Sod Succ/PF 125 MG/2 ML VIAL ONE (18:00)
[2024-04-15] MEDS ORDERED: Ondansetron PF 4 MG/2 ML Vial ONE (18:00)
[2024-04-15 20:56] VITALS: BMI 22.4
[2024-04-15] MEDS ORDERED: Acetaminophen 325 MG TAB PO PRN (21:43)
[2024-04-15] MEDS: Ondansetron ODT 4 MG TAB PO PRN (21:55)
[2024-04-15] MEDS: Morphine 4 MG/ML VIAL SLOW IVP PRN (21:55)
[2024-04-16] MEDS: Sodium Chloride 0.9% 1,000 ML IV SCH (00:35)
[2024-04-16] MEDS: methylPREDNISolone Sod Succ/PF 125 MG/2 ML VIAL IVP SCH (00:35)
[2024-04-16] MEDS: Ondansetron PF 4 MG/2 ML Vial IVP PRN (00:38)
[2024-04-16 06:28] LABS: #Basophils Less than 0.03 10x3/uL (0.0-0.2); #Eosinophils Less than 0.03 10x3/uL (0.0-0.7); %Basophils 0.1 % (0.0-1.0); %Lymphocytes 9.9 % (21.0-51.0); %Monocytes 0.4 % (0.0-10.0); %Neutrophils 89.1 % (42.0-75.0); Hematocrit 39.2 % (42.0-52.0); Hemoglobin 13.4 g/dL (14.0-18.0); Mean Corpuscular HGB CONC 34.2 g/dL (32.0-36.0); Mean Corpuscular Hemoglobin 29.9 pg (27.0-31.0); Mean Corpuscular Volume 87.5 fL (78.0-98.0); Platelet Count 254 10x3/uL (130-400); Red Blood Cell (RBC) Count 4.48 mill/uL (4.70-6.10)
[2024-04-16 07:07] LABS: Anion Gap 12 mmol/L (10-20); BUN (Urea Nitrogen) 13 mg/dL (8.9-20.6); Calc. Creatinine Clearance 100 mL/min (70-130); Calcium 8.9 mg/dL (7.8-10.44); Carbon Dioxide 22 mmol/L (22-29); Chloride 108 mmol/L (98-107); Estimated GFR 106; Glucose 175 mg/dL (70-105); Sodium 138 mmol/L (136-145)
[2024-04-16] MEDS: predniSONE 20 MG TAB PO SCH (08:34)
[2024-04-16] MEDS: FLU (Fluarix Triv) TS24-25(6MOS UP)/PF 45 MCG/0.5 ML Syringe IM ONE (08:35)
[2024-04-16] MEDS ORDERED: Morphine 4 MG/ML VIAL SLOW IVP PRN (12:08)
[2024-04-16] MEDS: Morphine 4 MG/ML VIAL SLOW IVP PRN (12:50)
[2024-04-16] MEDS: Promethazine HCl 25 MG in Sodium Chloride 0.9% 50 ML IVPB PRN (14:26)
[2024-04-16] MEDS: HYDROmorphone 0.5 MG/0.5 ML SYRINGE SLOW IVP SCH (22:06)
[2024-04-17 05:28] LABS: #Basophils Less than 0.03 10x3/uL (0.0-0.2); #Eosinophils Less than 0.03 10x3/uL (0.0-0.7); %Basophils 0.1 % (0.0-1.0); %Lymphocytes 3.7 % (21.0-51.0); %Monocytes 4.4 % (0.0-10.0); %Neutrophils 90.9 % (42.0-75.0); Hemoglobin 12.1 g/dL (14.0-18.0); Mean Corpuscular HGB CONC 33.6 g/dL (32.0-36.0); Mean Corpuscular Hemoglobin 29.8 pg (27.0-31.0); Mean Corpuscular Volume 88.7 fL (78.0-98.0); Mean Platelet Volume 10.2 fL (7.4-10.4); Platelet Count 230 10x3/uL (130-400); RBC Distribution Width 13.2 % (11.5-14.5); Red Blood Cell (RBC) Count 4.06 mill/uL (4.70-6.10)
[2024-04-17 06:22] LABS: Anion Gap 12 mmol/L (10-20); BUN (Urea Nitrogen) 15 mg/dL (8.9-20.6); Calc. Creatinine Clearance 91 mL/min (70-130); Calcium 8.6 mg/dL (7.8-10.44); Carbon Dioxide 26 mmol/L (22-29); Chloride 107 mmol/L (98-107); Estimated GFR 95; Glucose 137 mg/dL (70-105); Potassium 4.1 mmol/L (3.5-5.1); Sodium 141 mmol/L (136-145)
[2024-04-17] MEDS: GoLYTELY 4,000 ml Bottle PO SCH (17:16)
[2024-04-18 01:17] LABS: Campy jejuni + coli by PCR Negative (Negative); STEC Shiga Toxin 1+2 Negative (Negative); Salmonella spp. by PCR Negative (Negative); Shigella spp + EIEC by PCR Negative (Negative)
[2024-04-18 05:40] LABS: #Basophils Less than 0.03 10x3/uL (0.0-0.2); #Eosinophils Less than 0.03 10x3/uL (0.0-0.7); %Basophils 0.1 % (0.0-1.0); %Lymphocytes 4.7 % (21.0-51.0); %Monocytes 4.1 % (0.0-10.0); %Neutrophils 90.2 % (42.0-75.0); Hematocrit 35.7 % (42.0-52.0); Hemoglobin 11.7 g/dL (14.0-18.0); Mean Corpuscular HGB CONC 32.8 g/dL (32.0-36.0); Mean Corpuscular Volume 91.5 fL (78.0-98.0); Mean Platelet Volume 9.9 fL (7.4-10.4); Platelet Count 193 10x3/uL (130-400); RBC Distribution Width 13.6 % (11.5-14.5)
[2024-04-18 05:58] LABS: Anion Gap 11 mmol/L (10-20); BUN (Urea Nitrogen) 10 mg/dL (8.9-20.6); Calc. Creatinine Clearance 101 mL/min (70-130); Calcium 8.6 mg/dL (7.8-10.44); Carbon Dioxide 27 mmol/L (22-29); Chloride 110 mmol/L (98-107); Estimated GFR 107; Glucose 116 mg/dL (70-105); Sodium 144 mmol/L (136-145)
[2024-04-18] MEDS ORDERED: PROPOFOL 20 ML ONE ×2 (10:28→11:07)
[2024-04-18] MEDS ORDERED: Lidocaine 1% PF 5 ML VIAL ONE (10:28)
[2024-04-18] MEDS ORDERED: Ondansetron HCl/PF 4 MG/2 ML Vial IVP PRN (11:01)
[2024-04-18] MEDS ORDERED: Promethazine HCl 25 MG/ML VIAL IM PRN (11:01)
[2024-04-18] MEDS ORDERED: Ondansetron PF 4 MG/2 ML Vial ONE (11:58)
[2024-04-18] MEDS: Dicyclomine 10 MG CAP PO SCH (20:50)
[2024-04-19] MEDS: predniSONE 20 MG TAB PO SCH (08:05)
[2024-04-19] MEDS: methylPREDNISolone Sod Succ 40 MG VIAL IVP SCH ×2 (08:05→17:58)
[2024-04-19] MEDS: Ondansetron PF 4 MG/2 ML Vial IVP PRN (08:05)
[2024-04-19] MEDS ORDERED: Iopamidol-370 76% 500 ML MDV (1 ML CHARGE) ONE (14:05)
[2024-04-19] MEDS: fentaNYL 50 mcg/mL 1 mL Vial SLOW IVP PRN (14:17)
[2024-04-19] MEDS: Sodium Chloride 0.9% 1,000 ML IV SCH (14:24)
[2024-04-19] MEDS: Dicyclomine 10 MG CAP PO SCH (21:59)
[2024-04-20 05:51] LABS: #Basophils 0.03 10x3/uL (0.0-0.2); #Eosinophils Less than 0.03 10x3/uL (0.0-0.7); %Basophils 0.2 % (0.0-1.0); %Lymphocytes 6.1 % (21.0-51.0); %Monocytes 4.9 % (0.0-10.0); %Neutrophils 85.7 % (42.0-75.0); Hematocrit 35.4 % (42.0-52.0); Hemoglobin 11.9 g/dL (14.0-18.0); Mean Corpuscular HGB CONC 33.6 g/dL (32.0-36.0); Mean Corpuscular Hemoglobin 30.1 pg (27.0-31.0); Mean Corpuscular Volume 89.4 fL (78.0-98.0); Mean Platelet Volume 10.3 fL (7.4-10.4); Platelet Count 198 10x3/uL (130-400); RBC Distribution Width 13.2 % (11.5-14.5); Red Blood Cell (RBC) Count 3.96 mill/uL (4.70-6.10)
[2024-04-20 06:12] LABS: Anion Gap 11 mmol/L (10-20); BUN (Urea Nitrogen) 12 mg/dL (8.9-20.6); Calc. Creatinine Clearance 118 mL/min (70-130); Carbon Dioxide 28 mmol/L (22-29); Chloride 106 mmol/L (98-107); Estimated GFR 113; Glucose 131 mg/dL (70-105); Sodium 141 mmol/L (136-145)
[2024-04-20] MEDS: Sodium Chloride 0.9% 1,000 ML IV SCH (14:50)
[2024-04-20] MEDS: Dicyclomine 10 MG CAP PO SCH ×2 (14:51→16:59)
[2024-04-21 07:30] LABS: Hematocrit 37.1 % (42.0-52.0); Hemoglobin 12.5 g/dL (14.0-18.0); Mean Corpuscular HGB CONC 33.7 g/dL (32.0-36.0); Mean Corpuscular Hemoglobin 29.7 pg (27.0-31.0); Mean Corpuscular Volume 88.1 fL (78.0-98.0); Mean Platelet Volume 9.9 fL (7.4-10.4); Platelet Count 221 10x3/uL (130-400); RBC Distribution Width 13.2 % (11.5-14.5); Red Blood Cell (RBC) Count 4.21 mill/uL (4.70-6.10)
[2024-04-21 08:10] LABS: Band 1 % (5-11); Lymphocytes 4 % (21-51); Monocytes 1 % (0-10); Neutrophil 94 % (42-75); Nucleated RBC (Manual Ct) 1 % (0); Platelet Adequacy Comment Platelets Normal; Polychromasia SLIGHT = 2-3 cells HPF (0-2)
[2024-04-21 14:37] LABS: Adenovirus F 40-41 Not Detected (Not Detected); Astrovirus Not Detected (Not Detected); C. difficile toxin A+B DETECTED (Not Detected); Campylobacter by PCR Not Detected (Not Detected); Cryptosporidium Not Detected (Not Detected); Cyclospora cayetanensis Not Detected (Not Detected); Entamoeba histolytica Not Detected (Not Detected); Enteroaggregative E. coli Not Detected (Not Detected); Enteropathogenic E. coli Not Detected (Not Detected); Enterotoxigenic E. coli Not Detected (Not Detected); Giardia lamblia Not Detected (Not Detected); Norovirus GI-GII DETECTED (Not Detected); Plesiomonas shigelloides Not Detected (Not Detected); Rotavirus A Not Detected (Not Detected); Salmonella Not Detected (Not Detected); Sapovirus Not Detected (Not Detected); Shiga-toxin-producing E coli Not Detected (Not Detected); Shigella/Enteroinvasive E coli Not Detected (Not Detected); Vibrio Not Detected (Not Detected); Vibrio cholerae Not Detected (Not Detected); Yersinia enterocolitica Not Detected (Not Detected)
[2024-04-21] MEDS: Vancomycin HCl 125 MG Capsule PO SCH (15:33)
[2024-04-22] MEDS: Morphine 2 MG/ML VIAL SLOW IVP SCH (01:02)
[2024-04-22 06:20] LABS: Hematocrit 39.8 % (42.0-52.0); Hemoglobin 13.4 g/dL (14.0-18.0); Mean Corpuscular HGB CONC 33.7 g/dL (32.0-36.0); Mean Corpuscular Hemoglobin 29.6 pg (27.0-31.0); Mean Corpuscular Volume 88.1 fL (78.0-98.0); Mean Platelet Volume 10.1 fL (7.4-10.4); Platelet Count 239 10x3/uL (130-400); RBC Distribution Width 13.3 % (11.5-14.5); Red Blood Cell (RBC) Count 4.52 mill/uL (4.70-6.10)
[2024-04-22 06:24] LABS: Anion Gap 9 mmol/L (10-20); BUN (Urea Nitrogen) 18 mg/dL (8.9-20.6); Calc. Creatinine Clearance 113 mL/min (70-130); Calcium 8.4 mg/dL (7.8-10.44); Carbon Dioxide 29 mmol/L (22-29); Chloride 103 mmol/L (98-107); Estimated GFR 111; Glucose 130 mg/dL (70-105); Potassium 4.2 mmol/L (3.5-5.1); Sodium 137 mmol/L (136-145)
[2024-04-22 06:49] LABS: Band 1 % (5-11); Lymphocytes 7 % (21-51); Monocytes 6 % (0-10); Neutrophil 85 % (42-75); Platelet Adequacy Comment Platelets Normal; Polychromasia SLIGHT = 2-3 cells HPF (0-2); Reactive Lymphocytes 1 % (0-10)
[2024-04-22] MEDS: Saccharomyces boulardii 250 MG CAP PO SCH (08:04)
[2024-04-22] MEDS: Floranex 1 GM Packet PO SCH (08:04)
[2024-04-22 17:24] VITALS: BMI 22.4
[2024-04-22] MEDS: Morphine 4 MG/ML VIAL SLOW IVP SCH (17:47)
[2024-04-24] MEDS: Melatonin 3 MG TAB PO PRN (01:07)
[2024-04-24 05:45] LABS: Hematocrit 37.5 % (42.0-52.0); Hemoglobin 12.5 g/dL (14.0-18.0); Mean Corpuscular HGB CONC 33.3 g/dL (32.0-36.0); Mean Corpuscular Hemoglobin 29.5 pg (27.0-31.0); Mean Corpuscular Volume 88.4 fL (78.0-98.0); Platelet Count 219 10x3/uL (130-400); RBC Distribution Width 13.3 % (11.5-14.5); Red Blood Cell (RBC) Count 4.24 mill/uL (4.70-6.10)
[2024-04-24 05:56] LABS: Anion Gap 10 mmol/L (10-20); BUN (Urea Nitrogen) 18 mg/dL (8.9-20.6); Calc. Creatinine Clearance 115 mL/min (70-130); Calcium 8.3 mg/dL (7.8-10.44); Carbon Dioxide 28 mmol/L (22-29); Chloride 101 mmol/L (98-107); Estimated GFR 112; Glucose 120 mg/dL (70-105); Potassium 4.3 mmol/L (3.5-5.1); Sodium 135 mmol/L (136-145)
[2024-04-24 06:07] LABS: Band 2 % (5-11); Hypochromia SLIGHT = 6-15 cells HPF (0-5); Lymphocytes 8 % (21-51); Monocytes 7 % (0-10); Neutrophil 82 % (42-75); Nucleated RBC (Manual Ct) 1 % (0); Platelet Adequacy Comment Platelets Normal; Poikilocytosis SLIGHT = 6-15 cells HPF (0-5); Polychromasia SLIGHT = 2-3 cells HPF (0-2); Reactive Lymphocytes 1 % (0-10)
[2024-04-24] MEDS: diphenhydrAMINE 25 MG CAP PO SCH (20:21)
[2024-04-25 07:22] LABS: Anion Gap 15 mmol/L (10-20); BUN (Urea Nitrogen) 20 mg/dL (8.9-20.6); Calc. Creatinine Clearance 127 mL/min (70-130); Calcium 7.9 mg/dL (7.8-10.44); Carbon Dioxide 24 mmol/L (22-29); Chloride 105 mmol/L (98-107); Estimated GFR 115; Glucose 106 mg/dL (70-105); Hematocrit 40.5 % (42.0-52.0); Mean Corpuscular HGB CONC 32.1 g/dL (32.0-36.0); Mean Corpuscular Hemoglobin 30.2 pg (27.0-31.0); Mean Corpuscular Volume 94.2 fL (78.0-98.0); Mean Platelet Volume 11.2 fL (7.4-10.4); Platelet Count 199 10x3/uL (130-400); Potassium 4.7 mmol/L (3.5-5.1); RBC Distribution Width 13.7 % (11.5-14.5); Sodium 139 mmol/L (136-145)
[2024-04-25 08:12] LABS: Band 4 % (5-11); Lymphocytes 8 % (21-51); Neutrophil 86 % (42-75); Platelet Adequacy Comment Platelets Normal; Polychromasia SLIGHT = 2-3 cells HPF (0-2)
[2024-04-25] MEDS ORDERED: Glucagon 1 MG/ML KIT ONE (16:08)
[2024-04-25] MEDS: diphenhydrAMINE 25 MG CAP PO SCH (21:09)
[2024-04-26] MEDS: diphenhydrAMINE 25 MG CAP PO SCH (00:41)
[2024-04-26 06:19] LABS: Anion Gap 11 mmol/L (10-20); BUN (Urea Nitrogen) 21 mg/dL (8.9-20.6); Calc. Creatinine Clearance 125 mL/min (70-130); Calcium 8.3 mg/dL (7.8-10.44); Carbon Dioxide 29 mmol/L (22-29); Chloride 102 mmol/L (98-107); Estimated GFR 114; Glucose 121 mg/dL (70-105); Potassium 4.4 mmol/L (3.5-5.1); Sodium 138 mmol/L (136-145)
[2024-04-26 07:06] LABS: Hematocrit 40.3 % (42.0-52.0); Hemoglobin 13.5 g/dL (14.0-18.0); Mean Corpuscular HGB CONC 33.5 g/dL (32.0-36.0); Mean Corpuscular Hemoglobin 29.8 pg (27.0-31.0); Mean Platelet Volume 9.9 fL (7.4-10.4); Platelet Count 198 10x3/uL (130-400); RBC Distribution Width 13.6 % (11.5-14.5); Red Blood Cell (RBC) Count 4.53 mill/uL (4.70-6.10)
[2024-04-26 08:37] LABS: Band 6 % (5-11); Lymphocytes 3 % (21-51); Metamyelocyte 3 % (0-0); Monocytes 1 % (0-10); Myelocyte 2 % (0-0); Neutrophil 82 % (42-75); Platelet Adequacy Comment Platelets Normal; Polychromasia SLIGHT = 2-3 cells HPF (0-2); Reactive Lymphocytes 3 % (0-10)
[2024-04-26 11:22] LABS: ANA Symphony (Qualitative) Negative (Negative); ANA Symphony (Quantitative) 0.2 Ratio (< 0.7 Negative); dsDNA IgG Antibody Less than 0.6 IU/mL (<10 Negative)
[2024-04-26 14:13] LABS: Histoplasma Antigen - Urine Negative (<0.2 ng/mL)
[2024-04-26] MEDS: Calcium Carbonate 500 MG ChewTAB PO SCH (23:23)
[2024-04-27] MEDS: Nystatin 500,000 UNITS/5 ML UDCUP SSW SCH ×2 (02:42→08:25)
[2024-04-27 05:58] LABS: Hematocrit 38.8 % (42.0-52.0); Hemoglobin 12.9 g/dL (14.0-18.0); Mean Corpuscular HGB CONC 33.2 g/dL (32.0-36.0); Mean Corpuscular Hemoglobin 29.4 pg (27.0-31.0); Mean Corpuscular Volume 88.4 fL (78.0-98.0); Platelet Count 185 10x3/uL (130-400); RBC Distribution Width 13.5 % (11.5-14.5); Red Blood Cell (RBC) Count 4.39 mill/uL (4.70-6.10)
[2024-04-27 06:04] LABS: Anion Gap 12 mmol/L (10-20); BUN (Urea Nitrogen) 19 mg/dL (8.9-20.6); Calc. Creatinine Clearance 136 mL/min (70-130); Calcium 8.5 mg/dL (7.8-10.44); Carbon Dioxide 30 mmol/L (22-29); Chloride 102 mmol/L (98-107); Estimated GFR 117; Glucose 123 mg/dL (70-105); Magnesium 2.2 mg/dL (1.6-2.6); Potassium 4.5 mmol/L (3.5-5.1); Sodium 139 mmol/L (136-145)
[2024-04-27 06:25] LABS: Band 4 % (5-11); Lymphocytes 3 % (21-51); Monocytes 2 % (0-10); Myelocyte 2 % (0-0); Neutrophil 87 % (42-75); Platelet Adequacy Comment Platelets Normal; Polychromasia SLIGHT = 2-3 cells HPF (0-2); Reactive Lymphocytes 2 % (0-10)
[2024-04-27] MEDS: Morphine 4 MG/ML VIAL SLOW IVP PRN ×2 (12:59→16:39)
[2024-04-27] MEDS: Famotidine/PF 20 mg/2ml Vial SLOW IVP SCH (14:45)
[2024-04-27] MEDS: diphenhydrAMINE 25 MG CAP PO SCH (14:45)
[2024-04-27] MEDS: Famotidine 20 MG TAB PO SCH (21:22)
[2024-04-27] MEDS: diphenhydrAMINE 25 MG CAP PO PRN (21:25)
[2024-04-28 05:42] LABS: Hematocrit 38.4 % (42.0-52.0); Hemoglobin 12.9 g/dL (14.0-18.0); Mean Corpuscular HGB CONC 33.6 g/dL (32.0-36.0); Mean Corpuscular Volume 89.3 fL (78.0-98.0); Mean Platelet Volume 10.1 fL (7.4-10.4); Platelet Count 182 10x3/uL (130-400); RBC Distribution Width 13.9 % (11.5-14.5)
[2024-04-28 05:58] LABS: Calc. Creatinine Clearance 134 mL/min (70-130); Estimated GFR 117
[2024-04-28 05:59] LABS: Anion Gap 12 mmol/L (10-20); BUN (Urea Nitrogen) 23 mg/dL (8.9-20.6); Calcium 8.2 mg/dL (7.8-10.44); Carbon Dioxide 29 mmol/L (22-29); Chloride 99 mmol/L (98-107); Glucose 119 mg/dL (70-105); Magnesium 2.2 mg/dL (1.6-2.6); Potassium 4.2 mmol/L (3.5-5.1); Sodium 136 mmol/L (136-145)
[2024-04-28 06:11] LABS: Band 2 % (5-11); Hypochromia SLIGHT = 6-15 cells HPF (0-5); Lymphocytes 1 % (21-51); Monocytes 5 % (0-10); Neutrophil 90 % (42-75); Platelet Adequacy Comment Platelets Normal; Polychromasia SLIGHT = 2-3 cells HPF (0-2); Reactive Lymphocytes 2 % (0-10)
[2024-04-29] MEDS ORDERED: Aquaphor 10 GM TUBE TOP PRN (17:24)
[2024-04-29] MEDS: Enoxaparin 40 MG (0.4 mL) SYRINGE SC SCH (21:43)
[2024-04-29] MEDS: Fidaxomicin 200 MG TAB PO SCH (22:35)
[2024-04-30 05:40] LABS: Hematocrit 39.4 % (42.0-52.0); Hemoglobin 13.4 g/dL (14.0-18.0); Mean Corpuscular Hemoglobin 29.8 pg (27.0-31.0); Mean Corpuscular Volume 87.6 fL (78.0-98.0); Mean Platelet Volume 10.5 fL (7.4-10.4); Platelet Count 137 10x3/uL (130-400); RBC Distribution Width 14.3 % (11.5-14.5)
[2024-04-30 05:46] LABS: Band 2 % (5-11); Metamyelocyte 1 % (0-0); Monocytes 4 % (0-10); Myelocyte 2 % (0-0); Neutrophil 91 % (42-75); Platelet Adequacy Comment Platelets Normal; RBC Morphology Within Normal Limits; Smudge Cells 7.9 %
[2024-05-01 10:40] LABS: Hematocrit 41.3 % (42.0-52.0); Hemoglobin 14.2 g/dL (14.0-18.0); Mean Corpuscular HGB CONC 34.4 g/dL (32.0-36.0); Mean Corpuscular Volume 87.3 fL (78.0-98.0); Platelet Count 160 10x3/uL (130-400); RBC Distribution Width 14.6 % (11.5-14.5); Red Blood Cell (RBC) Count 4.73 mill/uL (4.70-6.10)
[2024-05-01 11:00] LABS: Anion Gap 17 mmol/L (10-20); BUN (Urea Nitrogen) 19 mg/dL (8.9-20.6); Calc. Creatinine Clearance 138 mL/min (70-130); Calcium 8.3 mg/dL (7.8-10.44); Carbon Dioxide 23 mmol/L (22-29); Chloride 102 mmol/L (98-107); Estimated GFR 118; Glucose 87 mg/dL (70-105); Potassium 5.4 mmol/L (3.5-5.1); Sodium 137 mmol/L (136-145)
[2024-05-01 11:23] LABS: Band 5 % (5-11); Lymphocytes 1 % (21-51); Macrocytosis SLIGHT = 6-15 cells HPF (0-5); Metamyelocyte 1 % (0-0); Monocytes 5 % (0-10); Neutrophil 89 % (42-75); Platelet Adequacy Comment Platelets Normal; Polychromasia SLIGHT = 2-3 cells HPF (0-2)
[2024-05-01] MEDS: Insulin Regular, Human 100 UNIT/ML 10 ML VIAL IVP SCH (15:28)
[2024-05-01] MEDS: Dextrose 50% Abboject 50 ML SYRINGE SLOW IVP SCH (15:29)
[2024-05-01] MEDS: Albuterol 2.5 MG (3 mL) NEB NEB SCH (18:10)
[2024-05-02 06:06] LABS: Hematocrit 40.8 % (42.0-52.0); Hemoglobin 13.5 g/dL (14.0-18.0); Mean Corpuscular HGB CONC 33.1 g/dL (32.0-36.0); Mean Corpuscular Hemoglobin 29.8 pg (27.0-31.0); Mean Corpuscular Volume 90.1 fL (78.0-98.0); Mean Platelet Volume 9.8 fL (7.4-10.4); Platelet Count 170 10x3/uL (130-400); RBC Distribution Width 15.1 % (11.5-14.5); Red Blood Cell (RBC) Count 4.53 mill/uL (4.70-6.10)
[2024-05-02 06:21] LABS: Anion Gap 18 mmol/L (10-20); BUN (Urea Nitrogen) 20 mg/dL (8.9-20.6); Calc. Creatinine Clearance 130 mL/min (70-130); Calcium 8.4 mg/dL (7.8-10.44); Carbon Dioxide 26 mmol/L (22-29); Chloride 100 mmol/L (98-107); Estimated GFR 116; Glucose 135 mg/dL (70-105); Potassium 4.5 mmol/L (3.5-5.1); Sodium 139 mmol/L (136-145)
[2024-05-02 06:31] LABS: Band 3 % (5-11); Lymphocytes 4 % (21-51); Metamyelocyte 3 % (0-0); Monocytes 1 % (0-10); Myelocyte 2 % (0-0); Neutrophil 87 % (42-75); Platelet Adequacy Comment Platelets Normal; RBC Morphology Within Normal Limits; Smudge Cells 8.9 %
[2024-05-02] MEDS: Tamsulosin HCl 0.4 MG CAP PO SCH (10:19)
[2024-05-02] MEDS: Morphine 2 MG/ML VIAL SLOW IVP PRN (10:20)
[2024-05-03 06:31] LABS: Anion Gap 18 mmol/L (10-20); BUN (Urea Nitrogen) 23 mg/dL (8.9-20.6); Calc. Creatinine Clearance 145 mL/min (70-130); Carbon Dioxide 25 mmol/L (22-29); Chloride 102 mmol/L (98-107); Estimated GFR 120; Glucose 113 mg/dL (70-105); Potassium 4.5 mmol/L (3.5-5.1); Sodium 140 mmol/L (136-145)
[2024-05-03 07:50] LABS: #Basophils 0.12 10x3/uL (0.0-0.2); #Eosinophils Less than 0.03 10x3/uL (0.0-0.7); %Basophils 0.5 % (0.0-1.0); %Lymphocytes 3.1 % (21.0-51.0); %Monocytes 5.2 % (0.0-10.0); Hematocrit 38.1 % (42.0-52.0); Hemoglobin 12.7 g/dL (14.0-18.0); Mean Corpuscular HGB CONC 33.3 g/dL (32.0-36.0); Mean Corpuscular Hemoglobin 29.8 pg (27.0-31.0); Mean Corpuscular Volume 89.4 fL (78.0-98.0); Mean Platelet Volume 9.8 fL (7.4-10.4); Platelet Count 139 10x3/uL (130-400); RBC Distribution Width 15.5 % (11.5-14.5); Red Blood Cell (RBC) Count 4.26 mill/uL (4.70-6.10)
[2024-05-03 08:21] LABS: Lymphocytes 3 % (21-51); Monocytes 1 % (0-10); Neutrophil 94 % (42-75); Platelet Adequacy Comment Platelets Normal; Polychromasia SLIGHT = 2-3 cells HPF (0-2); Reactive Lymphocytes 1 % (0-10); Toxic Granulation SLIGHT; Vacuoles SLIGHT
[2024-05-03] MEDS: Mesalamine 1000 MG Suppository PR SCH (21:37)
[2024-05-03] MEDS: Morphine 2 MG/ML VIAL SLOW IVP PRN (23:53)
[2024-05-04 06:43] LABS: Hematocrit 38.1 % (42.0-52.0); Hemoglobin 13.1 g/dL (14.0-18.0); Mean Corpuscular HGB CONC 34.4 g/dL (32.0-36.0); Mean Corpuscular Hemoglobin 30.2 pg (27.0-31.0); Mean Corpuscular Volume 87.8 fL (78.0-98.0); Mean Platelet Volume 10.3 fL (7.4-10.4); Platelet Count 146 10x3/uL (130-400); RBC Distribution Width 15.7 % (11.5-14.5); Red Blood Cell (RBC) Count 4.34 mill/uL (4.70-6.10)
[2024-05-04 06:57] LABS: Anion Gap 14 mmol/L (10-20); BUN (Urea Nitrogen) 23 mg/dL (8.9-20.6); Calc. Creatinine Clearance 154 mL/min (70-130); Calcium 7.9 mg/dL (7.8-10.44); Carbon Dioxide 25 mmol/L (22-29); Chloride 102 mmol/L (98-107); Estimated GFR 122; Glucose 116 mg/dL (70-105); Potassium 4.3 mmol/L (3.5-5.1); Sodium 137 mmol/L (136-145)
[2024-05-04 07:00] LABS: Band 2 % (5-11); Lymphocytes 6 % (21-51); Metamyelocyte 2 % (0-0); Monocytes 4 % (0-10); Neutrophil 86 % (42-75); Platelet Adequacy Comment Platelets Normal; RBC Morphology Within Normal Limits; Smudge Cells 3.9 %
[2024-05-04] MEDS: Morphine 2 MG/ML VIAL SLOW IVP PRN (20:18)
[2024-05-05 06:23] LABS: Anion Gap 10 mmol/L (10-20); BUN (Urea Nitrogen) 23 mg/dL (8.9-20.6); Calc. Creatinine Clearance 145 mL/min (70-130); Calcium 7.8 mg/dL (7.8-10.44); Carbon Dioxide 31 mmol/L (22-29); Chloride 101 mmol/L (98-107); Estimated GFR 120; Glucose 109 mg/dL (70-105); Potassium 4.3 mmol/L (3.5-5.1); Sodium 138 mmol/L (136-145)
[2024-05-05 06:35] LABS: Hematocrit 36.5 % (42.0-52.0); Hemoglobin 12.2 g/dL (14.0-18.0); Mean Corpuscular HGB CONC 33.4 g/dL (32.0-36.0); Mean Corpuscular Hemoglobin 29.8 pg (27.0-31.0); Mean Corpuscular Volume 89.2 fL (78.0-98.0); Mean Platelet Volume 9.7 fL (7.4-10.4); Platelet Count 145 10x3/uL (130-400); RBC Distribution Width 16.1 % (11.5-14.5); Red Blood Cell (RBC) Count 4.09 mill/uL (4.70-6.10)
[2024-05-05 07:24] LABS: Anisocytosis SLIGHT = 6-15 cells HPF (0-5); Band 1 % (5-11); Lymphocytes 2 % (21-51); Macrocytosis SLIGHT = 6-15 cells HPF (0-5); Monocytes 9 % (0-10); Myelocyte 1 % (0-0); Neutrophil 86 % (42-75); Nucleated RBC (Manual Ct) 1 % (0); Platelet Adequacy Comment Platelets Normal; Polychromasia SLIGHT = 2-3 cells HPF (0-2); Reactive Lymphocytes 1 % (0-10); Smudge Cells 7.9 %
[2024-05-05] MEDS: predniSONE 20 MG TAB PO SCH (08:58)
[2024-05-05] MEDS: Acetaminophen 325 MG TAB PO PRN (11:42)
[2024-05-05 15:19] VITALS: BP 127/80; TEMP 98.1
== END 2024-05-05 15:28 | disposition home or self-care (01) | DRG 385 ==
LOC: ERS 16:16 → T4-A 18:13
PROVIDERS: ADMIT Internal Medicine; ATTEND Internal Medicine
PROC: 0DB98ZX Excision of Duodenum, Via Natural or Artificial Opening Endoscopic, Diagnostic (ICD-10-PCS; principal; 2024-04-18)
PROC: 0DB88ZX Excision of Small Intestine, Via Natural or Artificial Opening Endoscopic, Diagnostic (ICD-10-PCS; 2024-04-18)
PROC: 0DB78ZX Excision of Stomach, Pylorus, Via Natural or Artificial Opening Endoscopic, Diagnostic (ICD-10-PCS; 2024-04-18)
PROC: 0DBP8ZX Excision of Rectum, Via Natural or Artificial Opening Endoscopic, Diagnostic (ICD-10-PCS; 2024-04-18)
PROC: 0DBE8ZX Excision of Large Intestine, Via Natural or Artificial Opening Endoscopic, Diagnostic (ICD-10-PCS; 2024-04-18)
DX: K50.10 Crohn's disease of large intestine without complications (principal); K57.31 Diverticulosis of large intestine without perforation or abscess with bleeding; A08.11 Acute gastroenteropathy due to Norwalk agent; A04.72 Enterocolitis due to Clostridium difficile, not specified as recurrent; E86.0 Dehydration; F17.210 Nicotine dependence, cigarettes, uncomplicated; K62.89 Other specified diseases of anus and rectum; E87.5 Hyperkalemia; R39.11 Hesitancy of micturition; F19.11 Other psychoactive substance abuse, in remission; R19.8 Other specified symptoms and signs involving the digestive system and abdomen; Z79.899 Other long term (current) drug therapy; Z79.2 Long term (current) use of antibiotics
CPT/HCPCS: 36415; 71045; 74174; 74183; 80048; 80053; 83630; 83735; 85025; 86038; 86141; 86225; 87324; 87385; 87449; 87505; 87507; 88305; 94640; 96361; 96374; 96375; J1171; J1611; J1650; J1815; J2270; J2272; J2405; J2550; J2704; J2919; J3010; J3490; J7030; J7512; J7611; J7999; Q0162; Q9967